=== PATIENT | female | born 1940 | race Caucasian/White ===

== ENCOUNTER 2019-10-20 10:14 | Outpatient (CLI) | payer MEDICARE, SELFPAY ==
[2019-10-20 10:25] LABS: Basophils Absolute Auto 0.04 K/mm3 (0.00-0.10); Basophils Percent Auto 0.9 % (0.0-1.0); Eosinophils Absolute Auto 0.14 K/mm3 (0.02-0.50); Eosinophils Percent Auto 3.1 % (1.0-6.0); Hematocrit 40.1 % (35.0-42.0); Hemoglobin 13.2 g/dL (11.7-13.8); Immature Granulocyte Absolute 0.01 K/mm3 (0.00-0.00); Immature Granulocyte Percent A 0.2 % (0.0-0.0); Lymphocytes Absolute Auto 1.26 K/mm3 (1.10-4.50); Mean Corpuscular HGB Conc 32.9 g/dL (32.0-36.0); Mean Corpuscular Hemoglobin 31.2 pg (27.0-31.0); Mean Corpuscular Volume 94.8 fL (78.0-102.0); Mean Platelet Volume 11.2 fl (9.2-11.8); Monocytes Absolute Auto 0.32 K/mm3 (0.10-0.90); Monocytes Percent Auto 7.1 % (2.0-11.0); Neutrophils Absolute Auto 2.7 K/mm3 (1.7-7.2); Neutrophils Percent Auto 60.7 % (50.0-70.0); Platelet Count Result 153 K/mm3 (150-420); Red Blood Count 4.23 M/mm3 (4.20-5.40); Red Cell Distribution Width 11.8 % (11.6-14.4); White Blood Count 4.5 K/mm3 (4.8-10.8)
[2019-10-20 10:31] LABS: Add Urine Microscopic? YES; Appearance Urine Clear (Clear); Bilirubin Urine Negative (Negative); Blood Urine Negative (Negative); Color Urine Yellow (Yellow); Glucose Urine UA Negative (Negative); Ketones Urine Negative (Negative); Leukocyte Esterase Ur Trace (Negative); Nitrate Urine Negative (Negative); Protein Urine Negative (Negative); Urobilinogen Urine 0.2 mg/dL (0.2-1.0)
[2019-10-20 10:51] LABS: RBC Urine 0-2 /hpf (0-2); Squamous Epithelial Cell Urine Rare /hpf (Few); WBC Urine 0-3 /hpf (0-3)
[2019-10-20 11:20] LABS: Bacteria Urine Trace /hpf
[2019-10-20 11:37] LABS: Alanine Aminotransferase 24 U/L (14-59); Alkaline Phosphatase 125 U/L (46-116); Aspartate Amino Transferase 21 U/L (15-37); Bilirubin,Total 0.5 mg/dL (0.00-1.00); Blood Urea Nitrogen 19 mg/dL (7-18); Calcium 9.6 mg/dL (8.5-10.1); Carbon Dioxide 31 mmol/L (21-32); Chloride 105 mmol/L (98-108); Cholesterol 148 mg/dL (0-200); Creatine Kinase 64 U/L (26-192); Estimated Glomerular Filt Rate 43; Free T3 2.97 pg/mL (2.18-3.98); Free T4 Free Thyroxine 0.96 ng/dL (0.76-1.46); Glucose 86 mg/dL (70-99); HDL Direct 59 mg/dL (40-60); LDL Cholesterol Calculated 62 mg/dL (<130); Osmolality Calculated 297 mOsm/kg (285-295); Sodium 143 mmol/L (136-145); Thyroid Stimulating Hormone 1.19 uIU/mL (0.36-3.74); Triglycerides 134 mg/dL (0-150)
[2019-10-20 11:42] LABS: CRP < 0.2 mg/dL (0.0-0.9)
[2019-10-20 12:24] LABS: Erythrocyte Sedimentation Rate 15 mm/hr (0-20)
[2019-10-22 18:50] LABS: Vitamin D 25 Hydroxy 37 ng/mL (30-100)
== END 2019-10-20 10:15 | disposition home or self-care (01) ==
PROVIDERS: PCP Internal Medicine; Visit Provider Internal Medicine
DX: M05.70 Rheumatoid arthritis with rheumatoid factor of unspecified site without organ or systems involvement (principal); N18.2 Chronic kidney disease, stage 2 (mild); E78.2 Mixed hyperlipidemia; I12.9 Hypertensive chronic kidney disease with stage 1 through stage 4 chronic kidney disease, or unspecified chronic kidney disease; R19.4 Change in bowel habit; M81.0 Age-related osteoporosis without current pathological fracture
CPT/HCPCS: 36415; 80053; 80061; 81001; 82306; 82550; 84439; 84443; 84481; 85025; 85652; 86140

== ENCOUNTER 2019-10-22 08:34 | Outpatient (CLI) | payer MEDICARE, SELFPAY ==
--- NOTE | ~2019-10-22 | CT_ITS ---
EXAMINATION: CT abdomen pelvis w con DATE: 10/22/2019 09:07 INDICATION: Diffuse abdominal cramping. Change in bowel habits for weeks. TECHNIQUE: Computed tomography (CT) of the abdomen and pelvis was performed with 100 cc Omnipaque 350 intravenous contrast. Automated exposure control and iterative reconstruction technique were employe d. Exam dose: 343.06 mGy-cm total exam DLP. COMPARISON: 02/27/2016 right upper quadrant abdominal ultrasound FINDINGS: There are focal areas of atelectasis, scarring and/or bronchiectasis at the lung bases. Status post sternotomy. Normal heart size. No pericardial or pleural effusion. There is an approximately 3 cm hypoenhancing right hepatic lesion; history of hepatic hemangioma of s laura size reportedly present on prior CT scan of August 2013. This also corresponds to a right hepatic echogenic focus noted on 02/27/2016 right upper quadrant abdominal ultrasound examination. Several up to 8 mm hypoenhancing lesions, likely hepatic cysts. The gallbladder is present and appears unremarkable. No bile duct or pancreatic duct dilatation. No p ancreatic mass lesion or calcification. Normal splenic size. Normal morphology of the adrenal glands. No renal mass lesion or urinary tract calculus or hydroureteronephrosis. There is mild diffuse thickening of the urinary bladder wall; recommend clinical correlation for cyst itis. Status post hysterectomy. Normal appendix. Diverticulosis of the colon; no CT evidence of diverticulitis. No bowel obstruction, bowel wall thick ening, pneumatosis or intraperitoneal free air. Abdominal aortic and iliac arterial calcification; no evidence of abdominal aortic aneurysm. No intra peritoneal or retroperitoneal or pelvic mass lesion or adenopathy or ascites. There is minimal free f luid in the dependent pelvis. Degenerative changes of the thoracic and lumbar spine. There is multilevel degenerative disc disease of the lumbar and lumbosacral area. There are degenerative changes of the apophyseal joints with asso ciated grade 1 anterolisthesis at L3-4 and L4-5. IMPRESSION: Bibasilar atelectasis, scarring and/or bronchiectasis 3 cm hepatic hemangioma, reportedly previously noted on August 2013 CT abdomen examination Several probable hepatic cysts measuring up to 8 mm Diverticulosis of the colon; no CT evidence of diverticulitis Reviewed, dictated and finalized at [facility]. Reviewed, dictated and finalized at location A. IMPRESSION: Bibasilar atelectasis, scarring and/or bronchiectasis 3 cm hepatic hemangioma, reportedly previously noted on August 2013 CT abdomen e xamination Several probable hepatic cysts measuring up to 8 mm Diverticulosis of the colon; no CT evidence of diverticulitis
== END 2019-10-22 08:35 | disposition home or self-care (01) ==
LOC: CHSIMG 08:37
PROVIDERS: PCP Internal Medicine; Visit Provider Internal Medicine
DX: R10.9 Unspecified abdominal pain (principal); R19.4 Change in bowel habit
CPT/HCPCS: 74177; Q9965

== ENCOUNTER 2019-11-27 15:45 | Outpatient (CLI) | payer MEDICARE, SELFPAY ==
[2019-11-27 16:24] LABS: Anion Gap 9.4 mmol/L (7-16); Blood Urea Nitrogen 20 mg/dL (7-18); Calcium 9.4 mg/dL (8.5-10.1); Carbon Dioxide 31 mmol/L (21-32); Chloride 103 mmol/L (98-108); Estimated Glomerular Filt Rate 41; Glucose 107 mg/dL (70-99); Osmolality Calculated 290 mOsm/kg (285-295); Potassium 4.4 mmol/L (3.5-5.1); Sodium 139 mmol/L (136-145)
== END 2019-11-27 15:46 | disposition home or self-care (01) ==
LOC: CHSLAB 15:47
PROVIDERS: PCP Internal Medicine; Visit Provider Internal Medicine
DX: R79.89 Other specified abnormal findings of blood chemistry (principal)
CPT/HCPCS: 36415; 80048

== ENCOUNTER 2020-02-22 12:42 | Outpatient (CLI) | payer MEDICARE, SELFPAY ==
[2020-02-22 13:12] LABS: Anion Gap 9 mmol/L (8-16); Blood Urea Nitrogen 20 mg/dL (7-18); Calcium 9.3 mg/dL (8.5-10.1); Carbon Dioxide 27 mmol/L (21-32); Chloride 105 mmol/L (98-108); Estimated Glomerular Filt Rate 41; Glucose 92 mg/dL (70-99); Osmolality Calculated 294 mOsm/kg (285-295); Potassium 4.4 mmol/L (3.5-5.1); Sodium 141 mmol/L (136-145)
== END 2020-02-22 12:43 | disposition home or self-care (01) ==
LOC: CHSLAB 12:43
PROVIDERS: PCP Internal Medicine; Visit Provider Internal Medicine
DX: R79.89 Other specified abnormal findings of blood chemistry (principal)
CPT/HCPCS: 36415; 80048

== ENCOUNTER 2020-04-22 09:46 | Outpatient (CLI) | payer MEDICARE, SELFPAY ==
[2020-04-22 10:02] LABS: Basophils Absolute Auto 0.04 K/mm3 (0.00-0.10); Basophils Percent Auto 0.9 % (0.0-1.0); Eosinophils Absolute Auto 0.27 K/mm3 (0.02-0.50); Eosinophils Percent Auto 5.9 % (1.0-6.0); Hematocrit 38.1 % (35.0-42.0); Hemoglobin 12.4 g/dL (11.7-13.8); Immature Granulocyte Absolute 0.02 K/mm3 (0.00-0.00); Immature Granulocyte Percent A 0.4 % (0.0-0.0); Lymphocytes Absolute Auto 1.07 K/mm3 (1.10-4.50); Lymphocytes Percent Auto 23.3 % (18.0-42.0); Mean Corpuscular HGB Conc 32.5 g/dL (32.0-36.0); Mean Corpuscular Hemoglobin 30.6 pg (27.0-31.0); Mean Corpuscular Volume 94.1 fL (78.0-102.0); Monocytes Absolute Auto 0.38 K/mm3 (0.10-0.90); Monocytes Percent Auto 8.3 % (2.0-11.0); Neutrophils Absolute Auto 2.8 K/mm3 (1.7-7.2); Neutrophils Percent Auto 61.2 % (50.0-70.0); Platelet Count Result 157 K/mm3 (150-420); Red Blood Count 4.05 M/mm3 (4.20-5.40); Red Cell Distribution Width 11.9 % (11.6-14.4); White Blood Count 4.6 K/mm3 (4.8-10.8)
[2020-04-22 10:15] LABS: Add Urine Microscopic? YES; Appearance Urine Clear (Clear); Bilirubin Urine Negative (Negative); Blood Urine Negative (Negative); Color Urine Yellow (Yellow); Glucose Urine UA Negative (Negative); Ketones Urine Negative (Negative); Leukocyte Esterase Ur 1+ LEU/UL (Negative); Nitrate Urine Negative (Negative); Protein Urine Negative (Negative); Urobilinogen Urine 0.2 mg/dL (0.2-1.0); pH Urine 7.5 (5.0-8.0)
[2020-04-22 10:18] LABS: Bacteria Urine Trace /hpf; RBC Urine None seen /hpf (0-2); Squamous Epithelial Cell Urine Few /hpf (Few)
[2020-04-22 11:13] LABS: Alanine Aminotransferase 22 U/L (14-59); Albumin Level 3.9 g/dL (3.4-5.0); Alkaline Phosphatase 121 U/L (46-116); Anion Gap 8 mmol/L (8-16); Aspartate Amino Transferase 22 U/L (15-37); Bilirubin,Total 0.4 mg/dL (0.00-1.00); Blood Urea Nitrogen 20 mg/dL (7-18); Calcium 9.2 mg/dL (8.5-10.1); Carbon Dioxide 29 mmol/L (21-32); Chloride 106 mmol/L (98-108); Cholesterol 140 mg/dL (0-200); Creatine Kinase 56 U/L (26-192); Estimated Glomerular Filt Rate 45; Glucose 83 mg/dL (70-99); HDL Direct 59 mg/dL (40-60); LDL Cholesterol Calculated 62 mg/dL (<130); Osmolality Calculated 297 mOsm/kg (285-295); Sodium 143 mmol/L (136-145); Total Protein 6.8 g/dL (6.4-8.2); Triglycerides 97 mg/dL (0-150)
[2020-04-22 11:17] LABS: RFT Charge Test YES; Rheumatoid Factor Screen Positive (Negative)
[2020-04-26 21:17] LABS: Anti Cyclic Citrullinated Pept >250 Units (<20)
[2020-04-27 12:24] LABS: Vitamin D 25 Hydroxy 37 ng/mL (30-100)
== END 2020-04-22 09:47 | disposition home or self-care (01) ==
LOC: CHSLAB 09:48
PROVIDERS: PCP Internal Medicine; Visit Provider Internal Medicine
DX: E78.5 Hyperlipidemia, unspecified (principal); I10 Essential (primary) hypertension; M81.0 Age-related osteoporosis without current pathological fracture; R31.9 Hematuria, unspecified; M05.70 Rheumatoid arthritis with rheumatoid factor of unspecified site without organ or systems involvement
CPT/HCPCS: 36415; 80053; 80061; 81001; 82306; 82550; 85025; 86200; 86430; 86431; 87086; 87088

== ENCOUNTER 2020-10-18 09:20 | Outpatient (CLI) | payer MEDICARE, SELFPAY ==
[2020-10-18 09:31] LABS: Basophils Absolute Auto 0.03 K/mm3 (0.00-0.10); Basophils Percent Auto 0.7 % (0.0-1.0); Eosinophils Absolute Auto 0.13 K/mm3 (0.02-0.50); Eosinophils Percent Auto 3.1 % (1.0-6.0); Hematocrit 37.7 % (35.0-42.0); Hemoglobin 12.4 g/dL (11.7-13.8); Immature Granulocyte Absolute 0.01 K/mm3 (0.00-0.00); Immature Granulocyte Percent A 0.2 % (0.0-0.0); Lymphocytes Absolute Auto 0.81 K/mm3 (1.10-4.50); Lymphocytes Percent Auto 19.2 % (18.0-42.0); Mean Corpuscular HGB Conc 32.9 g/dL (32.0-36.0); Mean Corpuscular Hemoglobin 30.9 pg (27.0-31.0); Mean Platelet Volume 10.8 fl (9.2-11.8); Monocytes Absolute Auto 0.39 K/mm3 (0.10-0.90); Monocytes Percent Auto 9.2 % (2.0-11.0); Neutrophils Absolute Auto 2.9 K/mm3 (1.7-7.2); Neutrophils Percent Auto 67.6 % (50.0-70.0); Platelet Count Result 162 K/mm3 (150-420); Red Blood Count 4.01 M/mm3 (4.20-5.40); Red Cell Distribution Width 12.1 % (11.6-14.4); White Blood Count 4.2 K/mm3 (4.8-10.8)
[2020-10-18 09:32] LABS: Add Urine Microscopic? YES; Appearance Urine Clear (Clear); Bilirubin Urine Negative (Negative); Blood Urine Negative (Negative); Color Urine Yellow (Yellow); Glucose Urine UA Negative (Negative); Ketones Urine Negative (Negative); Leukocyte Esterase Ur Trace (Negative); Nitrate Urine Negative (Negative); Protein Urine Negative (Negative); Specific Grav Ur 1.015 (1.010-1.020); Urobilinogen Urine 0.2 mg/dL (0.2-1.0)
[2020-10-18 09:39] LABS: Bacteria Urine Trace /hpf; RBC Urine None seen /hpf (0-2); Squamous Epithelial Cell Urine Few /hpf (Few); WBC Urine 0-3 /hpf (0-3)
[2020-10-18 10:03] LABS: Alanine Aminotransferase 18 U/L (14-59); Albumin Level 3.8 g/dL (3.4-5.0); Alkaline Phosphatase 68 U/L (46-116); Anion Gap 6 mmol/L (8-16); Aspartate Amino Transferase 16 U/L (15-37); Bilirubin,Total 0.6 mg/dL (0.00-1.00); Blood Urea Nitrogen 22 mg/dL (7-18); CRP < 0.5 mg/dL (0.0-0.9); Calcium 9.1 mg/dL (8.5-10.1); Carbon Dioxide 31 mmol/L (21-32); Chloride 103 mmol/L (98-108); Cholesterol 145 mg/dL (0-200); Creatine Kinase 52 U/L (26-192); Estimated Glomerular Filt Rate 46; Glucose 92 mg/dL (70-99); HDL Direct 56 mg/dL (40-60); LDL Cholesterol Calculated 69 mg/dL (<130); Osmolality Calculated 293 mOsm/kg (285-295); Potassium 4.7 mmol/L (3.5-5.1); Sodium 140 mmol/L (136-145); Total Protein 6.8 g/dL (6.4-8.2); Triglycerides 98 mg/dL (0-150)
[2020-10-18 10:16] LABS: RFT Charge Test YES; Rheumatoid Factor Screen Positive (Negative)
[2020-10-18 10:36] LABS: Erythrocyte Sedimentation Rate 22 mm/hr (0-20)
[2020-10-20 21:01] LABS: Vitamin D 25 Hydroxy 46 ng/mL (30-100)
[2020-10-28 08:40] LABS: Cyclic Citrullinated Peptide >250
== END 2020-10-18 09:21 | disposition home or self-care (01) ==
LOC: CHSLAB 09:22
PROVIDERS: PCP Internal Medicine; Visit Provider Internal Medicine
DX: E78.2 Mixed hyperlipidemia (principal); M81.0 Age-related osteoporosis without current pathological fracture; I12.9 Hypertensive chronic kidney disease with stage 1 through stage 4 chronic kidney disease, or unspecified chronic kidney disease; N18.2 Chronic kidney disease, stage 2 (mild); M05.70 Rheumatoid arthritis with rheumatoid factor of unspecified site without organ or systems involvement
CPT/HCPCS: 36415; 80053; 80061; 81001; 82306; 82550; 85025; 85652; 86140; 86430; 86431

== ENCOUNTER 2020-11-03 12:39 | Outpatient (CLI) | payer MEDICARE, SELFPAY ==
--- NOTE | ~2020-11-03 | MM_ITS ---
EXAMINATION: MM screening mg BI w marley HISTORY: Screening TECHNIQUE: Craniocaudal and mediolateral oblique 3-D tomosynthesis images were obtained and synthetic 2-D images were generated. CAD analysis was submitted and interpreted. COMPARISON: Comparison to multiple prior studies sequentially, with oldest reviewed study dated 08/14. BREAST PARENCHYMAL COMPOSITION: There are scattered areas of fibroglandular density. FINDINGS: There is no evidence of suspicious mass, calcification, or architectural distortion to sugg est malignancy in either breast. There has been no suspicious interval change. IMPRESSION: 1. No mammographic evidence of malignancy. 2. Recommend routine screening mammography in one year. BI-RADS Category 1: Negative Reviewed, dictated and finalized at location A.
--- NOTE | ~2020-11-03 | US_ITS ---
EXAMINATION: US carotid duplex BI EXAM DATE: 11/03/2020 15:19 INDICATION: Carotid stenosis. TECHNIQUE: Grayscale, color and pulsed Doppler images of the cervical carotid arteries were obtained . The degree of vessel stenosis is placed in one of the following categories: normal, <50% stenosis, 50-69% stenosis, >=70% stenosis but less than near-occlusion, near-occlusion, or occlusion. Note that percent stenosis relative to normal distal artery lumen diameter is indirectly measured from velocit y measurements as described by Foster, et al. Radiology 2003; 229:340-346. Comparison is made to prior examination from 06/18/2019. FINDINGS: RIGHT SIDE: Right common carotid artery peak systolic velocity (PSV in cm/s): 82 Right bulb/internal carotid artery peak systolic velocity (PSV in cm/s): 67 Right internal carotid artery end diastolic velocity (EDV in cm/s): 22 Right ICA/CCA peak systolic ratio: 0.8 Right external carotid artery peak systolic velocity (PSV in cm/s): 66 Right vertebral artery antegrade flow: yes There is moderate carotid bulb plaque. Velocity and Doppler waveforms in the common and internal carotid arteries is normal. LEFT SIDE: Left common carotid artery peak systolic velocity (PSV in cm/s): 74 Left bulb/internal carotid artery peak systolic velocity (PSV in cm/s): 96 Left internal carotid artery end diastolic velocity (EDV in cm/s): 23 Left ICA/CCA peak systolic ratio: 1.3 Left external carotid artery peak systolic velocity (PSV in cm/s): 86 Left vertebral artery antegrade flow: yes There is mild carotid bulb plaque. Velocity and Doppler waveforms in the common and internal carotid arteries is normal. IMPRESSION: 1. Less than 50 percent stenosis in the right internal carotid artery. 2. Less than 50 percent stenosis in the left internal carotid artery. > Reviewed, dictated and finalized at location B.
--- NOTE | ~2020-11-03 | DEXA_ITS ---
Bone Density Report Name: Denice Singh Age: 80 Sex: Female Ethnicity: White Date of : 1940 Indication: postmenopausal; screening for osteoporosis; height loss; prior fracture; asthma or emphysema; hysterectomy; rheumatoid arthritis; Referring Provider: Low [place] Study: Bone densitometry was performed. Exam Date: November 03, 2020 Accession number: Bone Density: Region BMD T-score Z-score Classification AP Spine(L1, L2, L3) 0.857 -1.5 1.1 Osteopenia Femoral Neck (Left) 0.535 -2.8 -0.6 Osteoporosis Total Hip (Left) 0.652 -2.4 -0.4 Osteopenia Femoral Neck (Right) 0.574 -2.5 -0.2 Osteoporosis Total Hip (Right) 0.702 -2.0 0.0 Osteopenia Femoral Neck Mean 0.554 -2.7 -0.4 Osteoporosis Total Hip Mean 0.677 -2.2 -0.2 Osteopenia World Health Organization criteria for BMD impression classify patients as: Normal (T-score at or above -1.0), Osteopenia (T-score between -1.0 and -2.5), or Osteoporosis (T-score at or below -2.5). 10-year Fracture Risk: FRAX not reported because: Some T-score for Spine Total or Hip Total or Femoral Neck at or below -2.5 Clinical Information Provided by Patient: Has had a low trauma fracture Has rheumatoid arthritis Has used the following medications: Vitamin D Has the following medical conditions: Asthma or Emphysema, Hysterectomy Patient maximum height was 63 Does not regularly consume dairy products Onset of menses at age 12 Number of children 2 Impression: The patient has established osteoporosis, based on the Left Femoral Neck T-score and the existence of a prior fracture. The patient has risk factors, including: previous fracture. Discussion: HIGH RISK OF FRACTURE. BONE DENSITY IS UNDESIRABLY LOW AT ONE OR MORE SKELETAL SITES, CONSISTENT WITH POSTMENOPAUSAL OSTEOPOROSIS. This patient's lowest T-score, in a patient who has previously fractured, meets the World Health Organization's (WHO) criteria for severe osteoporosis. In untreated patients, the risk of osteoporotic fracture increases approximately two-fold for each 1.0 SD decrease in T-score. Low bone density is not the only risk factor for fracture; also consider factors such as patient's age, frailty or poor health, risk of falling, risk of injury, previous osteoporotic fracture, family history of osteoporosis, cigarette smoking, low body weight, etc. Not everyone with low bone mineral density has osteoporosis; osteomalacia and other metabolic bone disorders should also be considered. Patients who have osteoporosis should be evaluated for specific diseases and conditions (secondary causes) that may cause or contribute to bone loss. The [place] [employer]ocr[employer] (AACE) and National Osteoporosis Foundation (NOF) recommend pharmacologic intervention for all postmenopausal
== END 2020-11-03 12:40 | disposition home or self-care (01) ==
LOC: CHSIMG 12:44
PROVIDERS: PCP Internal Medicine; Visit Provider Internal Medicine
DX: I65.29 Occlusion and stenosis of unspecified carotid artery (principal); M81.0 Age-related osteoporosis without current pathological fracture; Z12.31 Encounter for screening mammogram for malignant neoplasm of breast
CPT/HCPCS: 77063; 77067; 77080; 93880

== ENCOUNTER 2021-09-26 14:28 | Outpatient (CLI) | payer MEDICARE, SELFPAY ==
--- NOTE | ~2021-09-26 | XR_ITS ---
EXAMINATION: XR chest 2V DATE: 09/26/2021 14:57 INDICATION: Shortness of breath TECHNIQUE: PA and lateral views of the chest are obtained. COMPARISON: 11/04/2018 FINDINGS: There are airspace opacities in the right lower lobe. There is no pleural effusion or pneum othorax. The heart size is normal. Median sternotomy wires and mediastinal surgical clips are seen, l ikely from prior coronary artery bypass grafting. There is moderate thoracic spondylosis. IMPRESSION: 1. Right lower lobe airspace opacities, consistent with pneumonia. Reviewed, dictated and finalized at location F.
--- NOTE | ~2021-09-26 | CT_ITS ---
EXAMINATION: CTA chest PE protocol DATE: 09/26/2021 16:05 INDICATION: Shortness of breath. Elevated d-dimer. TECHNIQUE: Computed tomography angiography (CTA) of the chest was performed with 100 mL Omnipaque-350 intravenous contrast timed to evaluate the pulmonary arteries. Coronal maximum intensity projection 3D-reconstructions were created by the technologist. Automated exposure control and iterative reconst ruction technique were employed. Exam dose: 200.24 mGy-cm total exam DLP. COMPARISON: September 26, 2021 PA and lateral chest 08/18/2013 CT chest FINDINGS: There is diagnostic contrast enhancement of the pulmonary arteries and no evidence of pulmo nary embolism. No thoracic aortic aneurysm or dissection is evident. Heart size is within normal range. No hilar or mediastinal mass lesion or lymphadenopathy. Mild hilar and mediastinal lymph node promine nce is likely reactive due to bilateral lower lobe pneumonia, right greater than left. There is patchy consolidation in the right lower lobe with air bronchograms. There is less severe pat sonya consolidation in the left lower lobe. Minimal focal infiltrate in the posterior segment of the left upper lobe. Minimal atelectasis at the base of the middle lobe and lingula. There is prominent fibrocalcific discoid and nodular scarring in the left apex. Normal morphology of the adrenal glands. Status post sternotomy an coronary artery bypass graft surgery.. Mild anterior wedge compression fracture deformity of T1, T2. Moderate compression fracture deformity at T5 IMPRESSION: Bilateral lower lobe consolidating pneumonia, right worse than left No evidence of pulmonary embolism Impression fracture deformities of the thoracic spine Reviewed, dictated and finalized at [facility]. Reviewed, dictated and finalized at location A. IMPRESSION: Bilateral lower lobe consolidating pneumonia, right worse than lef t No evidence of pulmonary embolism Impression fracture deformities of the thoracic spine
[2021-09-26 14:48] LABS: Basophils Absolute Auto 0.05 K/mm3 (0.00-0.10); Basophils Percent Auto 0.7 % (0.0-1.0); Eosinophils Absolute Auto 0.04 K/mm3 (0.02-0.50); Eosinophils Percent Auto 0.6 % (1.0-6.0); Hematocrit 36.6 % (35.0-42.0); Hemoglobin 11.9 g/dL (11.7-13.8); Immature Granulocyte Absolute 0.06 K/mm3 (0.00-0.00); Immature Granulocyte Percent A 0.9 % (0.0-0.0); Lymphocytes Absolute Auto 0.93 K/mm3 (1.10-4.50); Lymphocytes Percent Auto 13.5 % (18.0-42.0); Mean Corpuscular HGB Conc 32.5 g/dL (32.0-36.0); Mean Corpuscular Hemoglobin 30.8 pg (27.0-31.0); Mean Corpuscular Volume 94.8 fL (78.0-102.0); Mean Platelet Volume 10.2 fl (9.2-11.8); Monocytes Absolute Auto 0.58 K/mm3 (0.10-0.90); Monocytes Percent Auto 8.4 % (2.0-11.0); Neutrophils Absolute Auto 5.2 K/mm3 (1.7-7.2); Neutrophils Percent Auto 75.9 % (50.0-70.0); Platelet Count Result 182 K/mm3 (150-420); Red Blood Count 3.86 M/mm3 (4.20-5.40); Red Cell Distribution Width 12.4 % (11.6-14.4); White Blood Count 6.9 K/mm3 (4.8-10.8)
[2021-09-26 14:56] LABS: Add Urine Microscopic? NO; Appearance Urine Clear (Clear); Bilirubin Urine Negative (Negative); Blood Urine Negative (Negative); Color Urine Yellow (Yellow); Glucose Urine UA Negative (Negative); Ketones Urine Negative (Negative); Leukocyte Esterase Ur Negative LEU/UL (Negative); Nitrate Urine Negative (Negative); Protein Urine Negative (Negative); Specific Grav Ur >= 1.030 (1.010-1.020); Urobilinogen Urine 0.2 mg/dL (0.2-1.0); pH Urine 5.5 (5.0-8.0)
[2021-09-26 15:06] LABS: D Dimer 1.08 mg/L (0.19-0.50)
[2021-09-26 15:12] LABS: Alanine Aminotransferase 21 U/L (14-59); Alkaline Phosphatase 28 U/L (46-116); Anion Gap 5 mmol/L (8-16); Aspartate Amino Transferase 17 U/L (15-37); Bilirubin,Total 0.4 mg/dL (0.00-1.00); Blood Urea Nitrogen 25 mg/dL (7-18); Calcium 9.2 mg/dL (8.5-10.1); Carbon Dioxide 29 mmol/L (21-32); Chloride 103 mmol/L (98-108); Creatine Kinase 43 U/L (26-192); Estimated Glomerular Filt Rate 36; Glucose 100 mg/dL (70-99); Osmolality Calculated 288 mOsm/kg (285-295); Potassium 4.5 mmol/L (3.5-5.1); Sodium 137 mmol/L (136-145); Total Protein 6.6 g/dL (6.4-8.2); Troponin I 10.3 ng/L (0.00-60.4)
== END 2021-09-26 14:29 | disposition home or self-care (01) ==
PROVIDERS: PCP Internal Medicine; Visit Provider Nurse Practitioner Family
DX: R06.02 Shortness of breath (principal); R79.1 Abnormal coagulation profile; J44.9 Chronic obstructive pulmonary disease, unspecified
CPT/HCPCS: 36415; 71046; 71275; 80053; 81003; 82550; 82553; 84484; 85025; 85380; Q9967

== ENCOUNTER 2021-10-06 10:56 | Outpatient (CLI) | payer MEDICARE, SELFPAY ==
--- NOTE | ~2021-10-06 | XR_ITS ---
XR chest 2V DATE: 10/06/2021 11:24 INDICATION: Pneumonia for 1.5 weeks. COPD, asthma TECHNIQUE: 2 views COMPARISON: 09/26/2021 CTA chest PE protocol FINDINGS: Status post sternotomy and CABG. Normal heart size. There is aortic calcification and tortuosity. There is bilateral lower lung infiltrate and/or atelectasis, improved since 09/26/2021. No pleural effusion or pulmonary vascular congestion or pleural effusion. Diffuse osteopenia. IMPRESSION: Improvement of bilateral lower lung infiltrates and/or atelectasis in the lower lungs Reviewed, dictated and finalized at location A.
[2021-10-06 11:13] LABS: Hemoglobin 12.3 g/dL (11.7-13.8); Mean Corpuscular HGB Conc 32.4 g/dL (32.0-36.0); Mean Corpuscular Hemoglobin 31.1 pg (27.0-31.0); Mean Platelet Volume 9.3 fl (9.2-11.8); Platelet Count Result 268 K/mm3 (150-420); Red Blood Count 3.96 M/mm3 (4.20-5.40); Red Cell Distribution Width 13.1 % (11.6-14.4); White Blood Count 12.3 K/mm3 (4.8-10.8)
[2021-10-06 11:26] LABS: Anion Gap 6 mmol/L (8-16); Blood Urea Nitrogen 25 mg/dL (7-18); Calcium 9.2 mg/dL (8.5-10.1); Carbon Dioxide 28 mmol/L (21-32); Chloride 103 mmol/L (98-108); Estimated Glomerular Filt Rate 40; Glucose 79 mg/dL (70-99); Osmolality Calculated 287 mOsm/kg (285-295); Potassium 4.3 mmol/L (3.5-5.1); Sodium 137 mmol/L (136-145)
[2021-10-06 11:56] LABS: Band Neutrophils Percent 0 % (0-6); Lymphocytes Absolute Manual 0.98 K/mm3 (1.1-4.5); Lymphocytes Percent Manual 8 % (18-44); Monocytes Absolute Manual 0.61 K/mm3 (0.1-0.90); Monocytes Percent Manual 5 % (3-9); Neutrophils Percent Manual 87 % (46-73); Platelet Estimate Adequate (Adequate); Total Cells Counted 100
== END 2021-10-06 10:57 | disposition home or self-care (01) ==
LOC: CHSLAB 11:00
PROVIDERS: PCP Internal Medicine; Visit Provider Internal Medicine
DX: J18.9 Pneumonia, unspecified organism (principal); E86.0 Dehydration
CPT/HCPCS: 36415; 71046; 80048; 85025

== ENCOUNTER 2021-10-20 09:58 | Inpatient (IN) | payer MEDICARE, SELFPAY ==
[2021-10-20] VITALS (11 sets, daily range): BP systolic 113–147; BP diastolic 49–70; PULSE 63–97; RESP 18–22; TEMP 35.8–37; O2SAT 91–97; BMI 25.0
--- NOTE | ~2021-10-20 | XR_ITS ---
XR chest 2V 10/20/2021 10:38 Indication: Dyspnea and shortness of breath Procedure: 2 view chest Comparison: Comparison to multiple prior studies sequentially, with oldest reviewed study dated 09/29. Findings: Patchy bilateral airspace disease most confluent in the right midlung. Status post median s ternotomy for CABG. Heart size normal. No significant effusion. There is a coronary artery stent. No pneumothorax. Impression: 1: Patchy bilateral airspace disease, compatible with pneumonia. Reviewed, dictated and finalized at location B. Impression: 1: Patchy bilateral airspace disease, compatible with pneumonia.
--- NOTE | 2021-10-20 10:08 | ED.SOB ---
HPI - SOB/Dyspnea General Chief Complaint: Shortness of Breath/Dyspnea Stated Complaint: SENT FOR DR KRAMER SOB Time Seen by Provider: 10/20/21 10:08 Source: patient Mode of arrival: ambulatory Limitations: no limitations History of Present Illness HPI Narrative: patient states she had pneumonia about 6 weeks ago. She was treated with antibiotics and steroids. She had increased her breathing treatments to 4 times a day while she was ill. She then had symptoms of sinusitis and has been started on amoxicillin 5 days ago. She still complained to her doctor that she is getting short of breath just walking across the room. She does have a history of COPD. She spoke with her doctor this morning who sent her here for further evaluation and possible admission to the hospital. She was tested for COVID with rapid antigen x2 were negative. She says that she has an elevated temperature to 99.8 yesterday morning and last evening. She denies any significant cough up other than that associated with her COPD. She complains of generalized weakness and chills. MD elicited complaint: shortness of breath Pertinent past history: COPD and pneumonia Onset (ago): week(s) (6) Context: recent illness Timing: intermittent and progressively worsening Severity: moderate Known history of: COPD Related Data Home Medications Medication Instructions Recorded Confirmed albuterol sulfate [ProAir HFA] 2 puff INHALATION QID PRN 10/20/21 10/20/21 alendronate 70 mg PO WEEKLY 10/20/21 10/20/21 alprazolam [Xanax] 0.25 mg PO TID PRN 10/20/21 10/20/21 amlodipine 2.5 mg PO DAILY 10/20/21 10/20/21 amoxicillin-pot clavulanate 1 tablet PO BID 10/20/21 10/20/21 aspirin 81 mg PO DAILY 10/20/21 10/20/21 budesonide 0.5 mg INHALATION DAILY 10/20/21 10/20/21 citalopram 20 mg PO DAILY 10/20/21 10/20/21 cyclobenzaprine 5 mg PO TID PRN 10/20/21 10/20/21 fluticasone propionate 2 spray INTRANASAL DAILY 10/20/21 10/20/21 folic acid 1 mg PO DAILY 10/20/21 10/20/21 hydroxychloroquine 200 mg PO DAILY 10/20/21 10/20/21 ipratropium-albuterol 3 ml INHALATION QID PRN 10/20/21 10/20/21 lovastatin 40 mg PO DAILY 10/20/21 10/20/21 magnesium oxide [MagOx] 400 mg PO DAILY 10/20/21 10/20/21 metoprolol succinate 25 mg PO DAILY 10/20/21 10/20/21 ticagrelor [Brilinta] 90 mg PO Q12H 10/20/21 10/20/21 Allergies Allergy/AdvReac Type Severity Reaction Status Date / Time No Known Allergies Allergy Verified 10/20/21 10:17 Review of Systems Review of Systems: All systems reviewed & are unremarkable except as noted in HPI and below Constitutional: Constitutional: Reports chills and Reports weakness Cardiovascular: Cardiovascular: Denies chest pain Respiratory: Respiratory: Reports as per HPI and Denies cough Gastrointestinal: Gastrointestinal: Denies diarrhea, Denies nausea and Denies vomiting PMFSH Past Medical History Medical History (Updated 10/20/21 @ 12:47 by Harvey Pillai MD) Chronic kidney disease, stage 2 (mild) COPD (chronic obstructive pulmonary disease) Coronary artery disease Hyperlipidemia Hypertension Pulmonary fibrosis Rheumatoid arthritis Surgical History Surgical History (Updated 10/20/21 @ 10:56 by Harvey Pillai MD) History of coronary artery stent placement Social History Social History (Updated 10/20/21 @ 10:57 by Harvey Pillai MD) Smoking packs per day: 2 Smoking cigarettes per day: 40.0 Years smoked: 15 Smoking pack-years: 30.00 Smoking status: Former smoker Tobacco type: cigarettes Second hand tobacco smoke exposure: Yes Alcohol intake: former Substance use: never Spiritual care concerns: No Exam Const: General: healthy appearing, no acute distress and alert Nutritional Appearance: well nourished Orientation/consciousness: patient oriented x3 HENMT: Head: normal to inspection Ears: external ears normal Eyes: Conjunctivae: conjunctivae normal Pupils: Equal, round and reactive pupils present EOM: EOMs intact giovanny
[2021-10-20 10:49] LABS: Basophils Absolute Auto 0.03 K/mm3 (0.00-0.10); Basophils Percent Auto 0.4 % (0.0-1.0); Eosinophils Absolute Auto 0.33 K/mm3 (0.02-0.50); Eosinophils Percent Auto 4.5 % (1.0-6.0); Hematocrit 32.7 % (35.0-42.0); Hemoglobin 10.7 g/dL (11.7-13.8); Immature Granulocyte Absolute 0.04 K/mm3 (0.00-0.00); Immature Granulocyte Percent A 0.5 % (0.0-0.0); Lymphocytes Absolute Auto 0.53 K/mm3 (1.10-4.50); Lymphocytes Percent Auto 7.3 % (18.0-42.0); Mean Corpuscular HGB Conc 32.7 g/dL (32.0-36.0); Mean Corpuscular Hemoglobin 30.4 pg (27.0-31.0); Mean Corpuscular Volume 92.9 fL (78.0-102.0); Mean Platelet Volume 9.5 fl (9.2-11.8); Monocytes Percent Auto 8.2 % (2.0-11.0); Neutrophils Absolute Auto 5.8 K/mm3 (1.7-7.2); Neutrophils Percent Auto 79.1 % (50.0-70.0); Platelet Count Result 183 K/mm3 (150-420); Red Blood Count 3.52 M/mm3 (4.20-5.40); Red Cell Distribution Width 12.5 % (11.6-14.4); White Blood Count 7.3 K/mm3 (4.8-10.8)
[2021-10-20 11:14] LABS: Influenza A QL RT-PCR Negative (Negative); Influenza B QL RT-PCR Negative (Negative); SARS-CoV-2 RNA PCR Negative (Negative)
[2021-10-20] MEDS: IPRATROPIUM 0.5 MG/ALBUTEROL SULFATE 2.5 MG AMPUL.NEB 3 ML INHALATION ×2 (11:27→18:17)
[2021-10-20 11:51] LABS: Lactic Acid Reflex 0.7 mmol/L (0.7-2.0)
[2021-10-20 11:54] LABS: Alanine Aminotransferase 17 U/L (6-35); Albumin Level 3.3 g/dL (3.5-5.1); Alkaline Phosphatase 36 U/L (38-126); Anion Gap 3 mmol/L (8-16); Aspartate Amino Transferase 25 U/L (14-36); Bilirubin,Total 0.6 mg/dL (0.2-1.3); Blood Urea Nitrogen 19 mg/dL (7-17); Calcium 9.3 mg/dL (8.4-10.2); Carbon Dioxide 26 mmol/L (22-30); Chloride 104 mmol/L (98-107); Estimated CRCL calculation 30 ml/min; Estimated Glomerular Filt Rate 48; Glucose 94 mg/dL (65-110); Magnesium 2.2 mg/dL (1.6-2.3); Osmolality Calculated 278 mOsm/kg (285-295); Potassium 4.6 mmol/L (3.4-5.0); Sodium 133 mmol/L (137-145)
[2021-10-20 12:02] LABS: NT Pro B Type Natriuretic Pept 2610 pg/mL (5-100)
[2021-10-20] MEDS: FUROSEMIDE INJ 40 MG/4 ML VIAL IV PUSH (12:27)
--- NOTE | 2021-10-20 13:08 | ECG_ITS ---
Measurements Intervals [place] Rate: 73 P: -16 UT: 136 QRS: -31 QRSD: 110 T: 18 QT: 401 QTc: 443 Interpretive Statements SINUS RHYTHM LEFT AXIS DEVIATION LEFT VENTRICULAR HYPERTROPHY BORDERLINE T WAVE ABNORMALITY- INFERIOR LEADS BASELINE ARTIFACT- II, III, AVR, AVL, AVF, V1-V2 BORDERLINE ECG Electronically Signed On 10-20-2021 14:27:05 CDT by Jem Rodriguez D.O.
--- NOTE | 2021-10-20 13:10 | PC.NURSE ---
Patient admitted from ER to unit at 1310. Oriented to room and call light. Patient arrived in w/c and was able to transfer to bed with standby assist. Patient denies pain.
[2021-10-20] MEDS: methylPREDNISolone SOD SUCC 40 MG VIAL IV PUSH ×2 (14:28→20:37)
[2021-10-20] MEDS: DOXYCYCLINE IV 100 MG in DEXTROSE 5% 100 ML IVPB (15:23)
[2021-10-20] MEDS: ACETAMINOPHEN 325 MG TABLET 650 MG PO (16:05)
[2021-10-20] MEDS: ENOXAPARIN 30 MG/0.3 ML SYRINGE SUB-Q (16:36)
[2021-10-20] MEDS: FUROSEMIDE INJ 20 MG/2 ML VIAL IV PUSH (16:37)
[2021-10-21] VITALS (12 sets, daily range): BP systolic 122–136; BP diastolic 63–66; PULSE 56–90; RESP 16–18; TEMP 36.2–36.3; O2SAT 92–98
[2021-10-21] MEDS: IPRATROPIUM 0.5 MG/ALBUTEROL SULFATE 2.5 MG AMPUL.NEB 3 ML INHALATION ×4 (00:12→18:31)
[2021-10-21 05:31] LABS: Hematocrit 32.9 % (35.0-42.0); Hemoglobin 10.8 g/dL (11.7-13.8); Mean Corpuscular HGB Conc 32.8 g/dL (32.0-36.0); Mean Corpuscular Hemoglobin 30.1 pg (27.0-31.0); Mean Corpuscular Volume 91.6 fL (78.0-102.0); Mean Platelet Volume 10.2 fl (9.2-11.8); Platelet Count Result 230 K/mm3 (150-420); Red Blood Count 3.59 M/mm3 (4.20-5.40)
[2021-10-21 05:46] LABS: Alanine Aminotransferase 21 U/L (14-59); Albumin Level 2.7 g/dL (3.4-5.0); Alkaline Phosphatase 35 U/L (46-116); Anion Gap 9 mmol/L (8-16); Aspartate Amino Transferase 15 U/L (15-37); Bilirubin,Total 0.3 mg/dL (0.00-1.00); Blood Urea Nitrogen 29 mg/dL (7-18); Calcium 9.6 mg/dL (8.5-10.1); Carbon Dioxide 25 mmol/L (21-32); Chloride 101 mmol/L (98-108); Estimated CRCL calculation 23 ml/min; Estimated Glomerular Filt Rate 39; Glucose 170 mg/dL (70-99); Magnesium 2.3 mg/dL (1.8-2.4); Osmolality Calculated 289 mOsm/kg (285-295); Sodium 135 mmol/L (136-145); Total Protein 6.8 g/dL (6.4-8.2)
[2021-10-21] MEDS: ALENDRONATE SODIUM 70 MG TABLET PO (06:00)
[2021-10-21] MEDS: DEXTROSE 5% 100 ML (06:09)
[2021-10-21] MEDS: DOXYCYCLINE IV 100 MG in DEXTROSE 5% 100 ML IVPB ×2 (06:10→18:26)
[2021-10-21] MEDS: ACETAMINOPHEN 325 MG TABLET 650 MG PO (07:59)
[2021-10-21] MEDS: ALPRAZolam (*CRX) 0.25 MG TABLET PO (08:00)
[2021-10-21] MEDS: MAGNESIUM OXIDE 400 MG TABLET PO (09:11)
[2021-10-21] MEDS: methylPREDNISolone SOD SUCC 40 MG VIAL IV PUSH ×2 (09:11→20:47)
[2021-10-21] MEDS: LOVASTATIN 20 MG TABLET 40 MG PO (09:11)
[2021-10-21] MEDS: FUROSEMIDE INJ 20 MG/2 ML VIAL IV PUSH ×2 (09:11→18:26)
[2021-10-21] MEDS: METOPROLOL SUCCINATE EXT REL 25 MG TABCR PO (09:12)
[2021-10-21] MEDS: amLODIPine BESYLATE 2.5 MG TABLET PO (09:12)
[2021-10-21] MEDS: FOLIC ACID 1 MG TABLET PO (09:12)
[2021-10-21] MEDS: CITALOPRAM HYDROBROMIDE 20 MG TABLET PO (09:13)
[2021-10-21] MEDS: HYDROXYCHLOROQUINE SULFATE 200 MG TABLET PO (09:13)
[2021-10-21] MEDS: FLUTICASONE PROPIONATE 0.05% NA SPR 16 GM BTL (*BKC) 2 SPRAY NASAL (09:13)
--- NOTE | 2021-10-21 10:36 | PM.IMHP ---
H&P: HPI History of Present Illness Date/Time: 10/21/21 10:36 this is a 81-year-old female that presented to the emergency department after visiting her primary care physician with complaints of shortness of breath and dyspnea. Patient has a past medical history of chronic kidney disease, COPD, CAD, hyperlipidemia, hypertension, pulmonary fibrosis and rheumatoid arthritis. According to patient approximately 2 months ago she was treated for pneumonia. After her situation did not improve she visited her primary care physician's office and was diagnosed with sinusitis and was started on antibiotics. Patient condition did not improve she still experience shortness of breath with daily activities. She visited her doctor's office this morning to complain of shortness of breath and was sent to our emergency department. Vital signs 73, 18, 97% on room air, blood pressure 121/56, 96.5, 73, 18, 97% on room air, WBC 7.3, hemoglobin 10.7, hematocrit 32.7, platelets 183, sodium 133, potassium 4.6, BUN 19, creatinine 1.10, glucose 94, lactic acid 0.7, magnesium 2.2, liver function enzymes within normal limits, creatinine 19, BNP 2610, influenza COVID-negative, chest x-ray indicates pneumonia, EKG sinus rhythm heart rate of 73. Patient still complaining use to complain of shortness of breath with improvement. Patient will be admitted for COPD and treatment of pneumonia. The patient denies CP, palpitation, extremity numbness, lightheadedness, dizziness, constipation, diarrhea, chills, or fever. Chief Complaint: Shortness of breath Review of Systems Review of Systems: A 14 organ system Review of Systems was performed and pertinent positives included in the HPI, otherwise remaining ROS is negative. [facility] Past Medical History Medical History (Updated 10/21/21 @ 10:46 by SOLOMON Vasquez) Chronic kidney disease, stage 2 (mild) COPD (chronic obstructive pulmonary disease) Coronary artery disease Hyperlipidemia Hypertension Pulmonary fibrosis Rheumatoid arthritis Surgical History Surgical History (Updated 10/20/21 @ 10:56 by Harvey Pillai MD) History of coronary artery stent placement Social History Social History (Updated 10/20/21 @ 10:57 by Harvey Pillai MD) Smoking packs per day: 2 Smoking cigarettes per day: 40.0 Years smoked: 15 Smoking pack-years: 30.00 Smoking status: Former smoker Tobacco type: cigarettes Second hand tobacco smoke exposure: Yes Alcohol intake: former Substance use: never Spiritual care concerns: No Meds Home Medications and Allergies Home Medications Medication Instructions Recorded Confirmed Type albuterol sulfate [ProAir HFA] 2 puff INHALATION QID PRN 10/20/21 10/20/21 History alendronate 70 mg PO WEEKLY 10/20/21 10/20/21 History alprazolam [Xanax] 0.25 mg PO TID PRN 10/20/21 10/20/21 History amlodipine 2.5 mg PO DAILY 10/20/21 10/20/21 History amoxicillin-pot clavulanate 1 tablet PO BID 10/20/21 10/20/21 History aspirin 81 mg PO DAILY 10/20/21 10/20/21 History budesonide 0.5 mg INHALATION DAILY 10/20/21 10/20/21 History citalopram 20 mg PO DAILY 10/20/21 10/20/21 History cyclobenzaprine 5 mg PO TID PRN 10/20/21 10/20/21 History fluticasone propionate 2 spray INTRANASAL DAILY 10/20/21 10/20/21 History folic acid 1 mg PO DAILY 10/20/21 10/20/21 History hydroxychloroquine 200 mg PO DAILY 10/20/21 10/20/21 History ipratropium-albuterol 3 ml INHALATION QID PRN 10/20/21 10/20/21 History lovastatin 40 mg PO DAILY 10/20/21 10/20/21 History magnesium oxide [MagOx] 400 mg PO DAILY 10/20/21 10/20/21 History metoprolol succinate 25 mg PO DAILY 10/20/21 10/20/21 History ticagrelor [Brilinta] 90 mg PO Q12H 10/20/21 10/20/21 History Allergies Allergy/AdvReac Type Severity Reaction Status Date / Time No Known Allergies Allergy Verified 10/20/21 10:17 Vital Signs Vital Signs - 24 hr 10/20/21 11:31 10/20/21 11:40 10/20/21 11:47 Temperature Pulse Rate 63 74 66 Respiratory Ra
[2021-10-21] MEDS: ENOXAPARIN 30 MG/0.3 ML SYRINGE SUB-Q (18:26)
[2021-10-21] MEDS: BISACODYL 5 MG TABLET EC PO (20:53)
[2021-10-22] VITALS (7 sets, daily range): BP systolic 114–121; BP diastolic 48–66; PULSE 69–80; RESP 18; TEMP 35.6–36.7; O2SAT 90–99
[2021-10-22] MEDS: ALPRAZolam (*CRX) 0.25 MG TABLET PO (00:10)
[2021-10-22] MEDS: IPRATROPIUM 0.5 MG/ALBUTEROL SULFATE 2.5 MG AMPUL.NEB 3 ML INHALATION ×2 (00:25→06:15)
[2021-10-22 05:11] LABS: Hematocrit 32.8 % (35.0-42.0); Hemoglobin 10.6 g/dL (11.7-13.8); Mean Corpuscular HGB Conc 32.3 g/dL (32.0-36.0); Mean Corpuscular Hemoglobin 29.7 pg (27.0-31.0); Mean Corpuscular Volume 91.9 fL (78.0-102.0); Mean Platelet Volume 9.8 fl (9.2-11.8); Platelet Count Result 254 K/mm3 (150-420); Red Blood Count 3.57 M/mm3 (4.20-5.40); Red Cell Distribution Width 12.3 % (11.6-14.4); White Blood Count 11.5 K/mm3 (4.8-10.8)
[2021-10-22 05:25] LABS: Alanine Aminotransferase 40 U/L (14-59); Albumin Level 2.7 g/dL (3.4-5.0); Alkaline Phosphatase 43 U/L (46-116); Anion Gap 10 mmol/L (8-16); Aspartate Amino Transferase 34 U/L (15-37); Bilirubin,Total 0.2 mg/dL (0.00-1.00); Blood Urea Nitrogen 41 mg/dL (7-18); Carbon Dioxide 25 mmol/L (21-32); Chloride 102 mmol/L (98-108); Estimated CRCL calculation 19 ml/min; Estimated Glomerular Filt Rate 30; Glucose 180 mg/dL (70-99); Magnesium 2.2 mg/dL (1.8-2.4); Osmolality Calculated 299 mOsm/kg (285-295); Sodium 137 mmol/L (136-145); Total Protein 7.2 g/dL (6.4-8.2)
[2021-10-22] MEDS: DOXYCYCLINE IV 100 MG in DEXTROSE 5% 100 ML IVPB (05:36)
--- NOTE | 2021-10-22 08:45 | P.DS_ITS ---
DS: Admitting Diagnosis Discharge Date 10/22/2021 Admitting Diagnosis COPDexacerbation, pneumonia rule out congestive heart failure DS: Discharge Diagnosis Discharge Diagnosis (1) Acute exacerbation of chronic obstructive airways disease: Code(s): J44.1 - Chronic obstructive pulmonary disease with (acute) exacerbation Status: Acute Assessment and Plan: * Chest x-ray indicates bilateral airway disease * Will continue supplementary oxygen, duo nebulizer along with as needed albuterol, Solu-Medrol and antibiotics doxycycline and Rocephin day 3 * Patient will discharge home with doxycycline and cefdinir x7 days * Patient will also discharge home with Symbicort and continue to use her as needed albuterol with nebulizers as needed * Patient will discharge home with Medrol pack (2) Congestive heart failure: Qualifiers: Heart failure chronicity: acute Heart failure type: unspecified Qualified Code(s): I50.9 - Heart failure, unspecified Code(s): I50.9 - Heart failure, unspecified Status: Acute Assessment and Plan: * No history of congestive heart failure * [id number] * Will order outpatient echo with results going to her primary care physician * Will start patient on a low dose Lasix due to chronic renal failure and a repeat BMP with results going to her primary care physician * Primary care physician will receive results and follow-up * Chest x-ray did not indicate edema nor does patient have lower extremity edema * Echo ordered as outpatient, patient will continue Lasix with a repeat CMP in 3 days to check renal function. * Primary care physician will determine whether or not patient will continue use of Lasix for congestive heart failure (3) PNA (pneumonia): Code(s): J18.9 - Pneumonia, unspecified organism Status: Acute Assessment and Plan: * Patient with a history of pneumonia treated with antibiotics and steroids * Has not resolved started patient on Rocephin in doxycycline. * WBCs within normal limit * Patient previously on amoxicillin before admission * Did not collect a blood culture due to patient's previous to admission antibi otic use * Patient not requiring any oxygen * Continue supplementary oxygen if needed along with duo nebulizers, as needed albuterol, Solu-Medrol and antibiotics doxycycline and Rocephin day 2 * Patient will discharge home with doxycycline and cefdinir. * CRP elevated on admission (4) Rheumatoid arthritis: Code(s): M06.9 - Rheumatoid arthritis, unspecified Status: Acute Assessment and Plan: * Continue home medication (5) Pulmonary fibrosis: Code(s): J84.10 - Pulmonary fibrosis, unspecified Status: Acute (6) Hypertension: Code(s): I10 - Essential (primary) hypertension Status: Acute Assessment and Plan: * Stable * Continue home medication (7) Hyperlipidemia: Code(s): E78.5 - Hyperlipidemia, unspecified Status: Acute Assessment and Plan: * Continue statins (8) Coronary artery disease: Code(s): I25.10 - Atherosclerotic heart disease of [place] coronary artery without angina pectoris Status: Inactive Assessment and Plan: * Continue statins along with Brilinta and aspirin (9) COPD (chronic obstructive pulmonary disease): Code(s): J44.9 - Chronic obstructive pulmonary disease, unspecified Status: Inactive (10) MARILUZ (acute kidney injury): Code(s): N17.9 - Acute kidney failure, unspecified Status: Acute Assessment and Plan: * Acute on chronic * Bu
--- NOTE | 2021-10-22 08:45 | PM.DS ---
DS: Admitting Diagnosis Discharge Date 10/22/2021 Admitting Diagnosis COPDexacerbation, pneumonia rule out congestive heart failure DS: Discharge Diagnosis Discharge Diagnosis (1) Acute exacerbation of chronic obstructive airways disease: Code(s): J44.1 - Chronic obstructive pulmonary disease with (acute) exacerbation Status: Acute Assessment and Plan: Chest x-ray indicates bilateral airway disease Will continue supplementary oxygen, duo nebulizer along with as needed albuterol, Solu-Medrol and antibiotics doxycycline and Rocephin day 3 Patient will discharge home with doxycycline and cefdinir x7 days Patient will also discharge home with Symbicort and continue to use her as needed albuterol with nebulizers as needed Patient will discharge home with Medrol pack (2) Congestive heart failure: Qualifiers: Heart failure chronicity: acute Heart failure type: unspecified Qualified Code(s): I50.9 - Heart failure, unspecified Code(s): I50.9 - Heart failure, unspecified Status: Acute Assessment and Plan: No history of congestive heart failure [id number] Will order outpatient echo with results going to her primary care physician Will start patient on a low dose Lasix due to chronic renal failure and a repeat BMP with results going to her primary care physician Primary care physician will receive results and follow-up Chest x-ray did not indicate edema nor does patient have lower extremity edema Echo ordered as outpatient, patient will continue Lasix with a repeat CMP in 3 days to check renal function. Primary care physician will determine whether or not patient will continue use of Lasix for congestive heart failure (3) PNA (pneumonia): Code(s): J18.9 - Pneumonia, unspecified organism Status: Acute Assessment and Plan: Patient with a history of pneumonia treated with antibiotics and steroids Has not resolved started patient on Rocephin in doxycycline. WBCs within normal limit Patient previously on amoxicillin before admission Did not collect a blood culture due to patient's previous to admission antibiotic use Patient not requiring any oxygen Continue supplementary oxygen if needed along with duo nebulizers, as needed albuterol, Solu-Medrol and antibiotics doxycycline and Rocephin day 2 Patient will discharge home with doxycycline and cefdinir. CRP elevated on admission (4) Rheumatoid arthritis: Code(s): M06.9 - Rheumatoid arthritis, unspecified Status: Acute Assessment and Plan: Continue home medication (5) Pulmonary fibrosis: Code(s): J84.10 - Pulmonary fibrosis, unspecified Status: Acute (6) Hypertension: Code(s): I10 - Essential (primary) hypertension Status: Acute Assessment and Plan: Stable Continue home medication (7) Hyperlipidemia: Code(s): E78.5 - Hyperlipidemia, unspecified Status: Acute Assessment and Plan: Continue statins (8) Coronary artery disease: Code(s): I25.10 - Atherosclerotic heart disease of [place] coronary artery without angina pectoris Status: Inactive Assessment and Plan: Continue statins along with Brilinta and aspirin (9) COPD (chronic obstructive pulmonary disease): Code(s): J44.9 - Chronic obstructive pulmonary disease, unspecified Status: Inactive (10) MARILUZ (acute kidney injury): Code(s): N17.9 - Acute kidney failure, unspecified Status: Acute Assessment and Plan: Acute on chronic Bun/CR 19/1.10>29/1.31>41/1.63 baseline creatinine1.10-1.20 CMP in 3 days with results going to primary care physician Will give a low-dose of Lasix due to renal failure DS: Summary Hospital Course Reason for hospitalization: sob Hospital Course: this is a 81-year-old female that presented to the emergency department after visiting her primary care physician with complaints of shortness of breath and dyspnea.
[2021-10-22] MEDS: LOVASTATIN 20 MG TABLET 40 MG PO (09:20)
[2021-10-22] MEDS: methylPREDNISolone SOD SUCC 40 MG VIAL IV PUSH (09:23)
[2021-10-22] MEDS: HYDROXYCHLOROQUINE SULFATE 200 MG TABLET PO (09:23)
[2021-10-22] MEDS: amLODIPine BESYLATE 2.5 MG TABLET PO (09:23)
[2021-10-22] MEDS: FUROSEMIDE INJ 20 MG/2 ML VIAL IV PUSH (09:23)
[2021-10-22] MEDS: FOLIC ACID 1 MG TABLET PO (09:25)
[2021-10-22] MEDS: CITALOPRAM HYDROBROMIDE 20 MG TABLET PO (09:25)
[2021-10-22] MEDS: METOPROLOL SUCCINATE EXT REL 25 MG TABCR PO (09:50)
[2021-10-22] MEDS: FLUTICASONE PROPIONATE 0.05% NA SPR 16 GM BTL (*BKC) 2 SPRAY NASAL (09:50)
[2021-10-22] MEDS: MAGNESIUM OXIDE 400 MG TABLET PO (09:50)
--- NOTE | 2021-10-22 10:41 | PC.NURSE ---
Pt discharged to family care. Pt is A+O x 3. VSS. Discharge instructions given to pt. Medications reviewed with pt. Out pt orders for lab and ECHO reviewed with pt. Pt to make appointment with primary MD for this week and call her industrial ecology technician. Pt verbalized understanding of all discharge orders. RN transported pt to family car via and assisted her into the car.
--- NOTE | 2021-10-24 14:23 | PC.NURSE ---
Pt states she received and understood her discharge instructions. Pt also states I was very, very pleased with my care there.
== END 2021-10-22 10:25 | disposition home or self-care (01) | DRG 190 ==
LOC: CHSED 12:47 → CHS2ND 12:57
PROVIDERS: Nurse Practitioner; Admitting Provider Internal Medicine; Emergency Provider Emergency Medicine; PCP Internal Medicine; Visit Provider Internal Medicine
DX: J44.1 Chronic obstructive pulmonary disease with (acute) exacerbation (principal); N18.2 Chronic kidney disease, stage 2 (mild); J84.10 Pulmonary fibrosis, unspecified; I25.10 Atherosclerotic heart disease of native coronary artery without angina pectoris; E78.5 Hyperlipidemia, unspecified; M06.9 Rheumatoid arthritis, unspecified; Z95.5 Presence of coronary angioplasty implant and graft; Z87.891 Personal history of nicotine dependence; Z20.822 Contact with and (suspected) exposure to COVID-19; I13.0 Hypertensive heart and chronic kidney disease with heart failure and stage 1 through stage 4 chronic kidney disease, or unspecified chronic kidney disease; I50.9 Heart failure, unspecified; J18.9 Pneumonia, unspecified organism; N17.9 Acute kidney failure, unspecified; J44.0 Chronic obstructive pulmonary disease with (acute) lower respiratory infection
CPT/HCPCS: 36415; 71046; 80053; 83605; 83735; 83880; 84484; 85025; 85027; 86140; 87081; 87502; 93005; 94640; 96374; 97161; 99285; A9270; C9803; J0696; J1650; J1940; J2920; U0003; U0005

== ENCOUNTER 2021-10-25 13:44 | Outpatient (CLI) | payer MEDICARE, SELFPAY ==
[2021-10-25 13:57] LABS: Hematocrit 35.6 % (35.0-42.0); Hemoglobin 11.5 g/dL (11.7-13.8); Mean Corpuscular HGB Conc 32.3 g/dL (32.0-36.0); Mean Corpuscular Hemoglobin 30.3 pg (27.0-31.0); Mean Corpuscular Volume 93.9 fL (78.0-102.0); Mean Platelet Volume 9.2 fl (9.2-11.8); Platelet Count Result 367 K/mm3 (150-420); Red Blood Count 3.79 M/mm3 (4.20-5.40); Red Cell Distribution Width 12.5 % (11.6-14.4); White Blood Count 12.8 K/mm3 (4.8-10.8)
[2021-10-25 14:06] LABS: Band Neutrophils Percent 0 % (0-6); Lymphocytes Absolute Manual 0.76 K/mm3 (1.1-4.5); Lymphocytes Percent Manual 6 % (18-44); Metamyelocytes Percent 2 %; Monocytes Absolute Manual 1.53 K/mm3 (0.1-0.90); Monocytes Percent Manual 12 % (3-9); Myelocytes Percent 5 %; Neutrophils Percent Manual 75 % (46-73); Total Cells Counted 100
[2021-10-25 14:07] LABS: Platelet Estimate Adequate (Adequate)
[2021-10-25 14:51] LABS: Alanine Aminotransferase 40 U/L (14-59); Albumin Level 3.1 g/dL (3.4-5.0); Alkaline Phosphatase 41 U/L (46-116); Anion Gap 8 mmol/L (8-16); Aspartate Amino Transferase 20 U/L (15-37); Bilirubin,Total 0.2 mg/dL (0.00-1.00); Blood Urea Nitrogen 40 mg/dL (7-18); Calcium 9.7 mg/dL (8.5-10.1); Carbon Dioxide 28 mmol/L (21-32); Chloride 103 mmol/L (98-108); Estimated Glomerular Filt Rate 40; Glucose 130 mg/dL (70-99); NT Pro B Type Natriuretic Pept 1341 pg/mL (0-450); Osmolality Calculated 299 mOsm/kg (285-295); Potassium 4.2 mmol/L (3.5-5.1); Sodium 139 mmol/L (136-145); Total Protein 6.2 g/dL (6.4-8.2)
== END 2021-10-25 13:45 | disposition home or self-care (01) ==
LOC: CHSLAB 13:46
PROVIDERS: PCP Internal Medicine; Visit Provider Internal Medicine
DX: I50.9 Heart failure, unspecified (principal)
CPT/HCPCS: 36415; 80053; 83880; 85025

== ENCOUNTER 2021-11-13 13:23 | Outpatient (CLI) | payer MEDICARE, SELFPAY ==
--- NOTE | ~2021-11-13 | CT_ITS ---
EXAMINATION: CT diagnostic chest wo con DATE: 11/13/2021 13:45 INDICATION: Pulmonary fibrosis. No chest complaints reported today. TECHNIQUE: Computed tomography (CT) of the chest was performed without intravenous contrast. Automate d exposure control and iterative reconstruction technique were employed. Exam dose: 119.57 mGy-cm to carrie exam DLP. COMPARISON: 10/20/2021 PA and lateral chest 09/26/2021 CT pulmonary scan FINDINGS: Normal heart size. Status post sternotomy and coronary bypass graft surgery. No pericardial or pleura l effusion. There are patchy bilateral pulmonary infiltrates including minimally improved multinodular medial lef t apical infiltrate since 09/26/2021. There are multiple new patchy right upper lobe infiltrates. There is considerable improvement of patchy consolidating infiltrates in the lower lobes with residua l peripheral septal soft tissue thickening. There is old pulmonary granulomatous disease including some calcified right paratracheal and right hi lar nodes, right lower lobe calcified pulmonary granuloma. No hilar mass lesion or lymphadenopathy. Normal morphology of the adrenal glands. Mild cupping of the superior vertebral endplate of T2. Moderate compression fracture deformity at T5. These are stable since 09/26/2021 IMPRESSION: Near resolution of patchy consolidating infiltrates in both lower lobes, minimal improve ment of multinodular left upper lobe infiltrate, but new patchy right upper lobe and lesser lingular infiltrates since 09/26/2021 Reviewed, dictated and finalized at [facility]. Reviewed, dictated and finalized at [facility]. IMPRESSION: Near resolution of patchy consolidating infiltrates in both lower lobes, minimal improvement of multinodular left upper lobe infiltrate, but new patchy right upper lobe and lesser lingular infiltrates since 09/26/2021
== END 2021-11-13 13:24 | disposition home or self-care (01) ==
LOC: CHSIMG 13:25
PROVIDERS: PCP Internal Medicine; Visit Provider Internal Medicine
DX: J84.10 Pulmonary fibrosis, unspecified (principal)
CPT/HCPCS: 71250

== ENCOUNTER 2021-11-17 09:51 | Outpatient (CLI) | payer MEDICARE, SELFPAY ==
[2021-11-17 10:26] LABS: Basophils Absolute Auto 0.05 K/mm3 (0.00-0.10); Basophils Percent Auto 0.8 % (0.0-1.0); Eosinophils Absolute Auto 0.05 K/mm3 (0.02-0.50); Eosinophils Percent Auto 0.8 % (1.0-6.0); Hematocrit 32.7 % (35.0-42.0); Hemoglobin 10.8 g/dL (11.7-13.8); Immature Granulocyte Absolute 0.08 K/mm3 (0.00-0.00); Immature Granulocyte Percent A 1.3 % (0.0-0.0); Lymphocytes Absolute Auto 1.05 K/mm3 (1.10-4.50); Lymphocytes Percent Auto 17.5 % (18.0-42.0); Mean Corpuscular Hemoglobin 30.4 pg (27.0-31.0); Mean Corpuscular Volume 92.1 fL (78.0-102.0); Neutrophils Absolute Auto 4.2 K/mm3 (1.7-7.2); Neutrophils Percent Auto 69.6 % (50.0-70.0); Platelet Count Result 207 K/mm3 (150-420); Red Blood Count 3.55 M/mm3 (4.20-5.40); Red Cell Distribution Width 13.5 % (11.6-14.4)
[2021-11-17 10:44] LABS: Add Urine Microscopic? NO; Appearance Urine Clear (Clear); Bilirubin Urine Negative (Negative); Blood Urine Negative (Negative); Color Urine Light Yellow (Yellow); Glucose Urine UA Negative (Negative); Ketones Urine Negative (Negative); Leukocyte Esterase Ur Negative (Negative); Nitrate Urine Negative (Negative); Protein Urine Negative (Negative); Specific Grav Ur 1.025 (1.010-1.020); Urobilinogen Urine 0.2 mg/dL (0.2-1.0)
[2021-11-17 10:50] VITALS: PULSE 54; O2SAT 95
[2021-11-17 10:52] VITALS: PULSE 61; O2SAT 96
[2021-11-17 10:55] VITALS: PULSE 68; O2SAT 79
[2021-11-17 10:56] LABS: Rheumatoid Factor Screen Positive (Negative)
[2021-11-17 10:57] LABS: RFT Charge Test YES
[2021-11-17 10:59] LABS: Alanine Aminotransferase 23 U/L (14-59); Albumin Level 3.1 g/dL (3.4-5.0); Alkaline Phosphatase 37 U/L (46-116); Anion Gap 5 mmol/L (8-16); Aspartate Amino Transferase 14 U/L (15-37); Bilirubin,Total 0.5 mg/dL (0.00-1.00); Blood Urea Nitrogen 28 mg/dL (7-18); CRP 2.3 mg/dL (0.0-0.9); Calcium 9.3 mg/dL (8.5-10.1); Carbon Dioxide 28 mmol/L (21-32); Chloride 105 mmol/L (98-108); Cholesterol 142 mg/dL (0-200); Creatine Kinase 29 U/L (26-192); Estimated Glomerular Filt Rate 34; Free T3 2.21 pg/mL (2.18-3.98); Free T4 Free Thyroxine 0.93 ng/dL (0.76-1.46); Glucose 86 mg/dL (70-99); HDL Direct 51 mg/dL (40-60); LDL Cholesterol Calculated 60 mg/dL (<130); NT Pro B Type Natriuretic Pept 724 pg/mL (0-450); Osmolality Calculated 290 mOsm/kg (285-295); Potassium 4.2 mmol/L (3.5-5.1); Sodium 138 mmol/L (136-145); Thyroid Stimulating Hormone 0.79 uIU/mL (0.36-3.74); Total Protein 6.4 g/dL (6.4-8.2); Triglycerides 153 mg/dL (0-150)
[2021-11-17 11:00] VITALS: PULSE 79; O2SAT 93
--- NOTE | 2021-11-17 11:16 | HOMEO2EVAL ---
Evaluation was performed at [facility] [place] Home Oxygen Evaluation RC: Home Oxygen (O2) Evaluation Start: 11/17/21 11:02 Freq: Status: Active Protocol: RPE Activity Type Activity Date Activity User E-sign Co-sign Detail Recorded Client Recorded Date Recorded By Document 11/17/21 10:50 SJB [id number] 11/17/21 11:16 SJB Document 11/17/21 10:52 SJB [id number] 11/17/21 11:16 SJB Document 11/17/21 10:55 SJB [id number] 11/17/21 11:16 SJB Document 11/17/21 11:00 SJB [id number] 11/17/21 11:16 SJB 11/17/21 11/17/21 11/17/21 10:50 10:52 10:55 Home O2 Evaluation Test Phase Resting Exercise Exercise Oxygen Delivery Room Air Room Air Oxygen Flow Rate (L/min) 1 Pulse Oximetry (90-100 %) 95 96 79 L Pulse Rate (60-100 beats/min) 54 L 61 68 Activity Tolerance Good Good Rating of Perceived Dyspnea (PD) +1 Mild, +2 Mild, Some Noticeable to Difficulty, the Participant Noticeable to but Not to an the Observer Observer Rate of Perceived Exertion (PE) 12 Ambulation Distance (feet) 190 360 Ambulation Distance (meters) 57.90 109.72 Home Oxygen Evaluation Comments Will begin walk Pt walked Pt walked on room air. approx 190 ft approx 360 ft with Sp02 on 1 lpm, sp02 dropping to 86% dropped to 79%, , HR 68. PLB HR 68. Will encouraged. increase 02 to Will start pt 2 lpm. on 1 lpm oxygen . Treatment Charges O2 Evaluation - Outpatient 11/17/21 11:00 Home O2 Evaluation Test Phase Exercise Oxygen Delivery Oxygen Flow Rate (L/min) 2 Pulse Oximetry (90-100 %) 93 Pulse Rate (60-100 beats/min) 79 Activity Tolerance Good Rating of Perceived Dyspnea (PD) +2 Mild, Some Difficulty, Noticeable to the Observer Rate of Perceived Exertion (PE) 12 Ambulation Distance (feet) 475 Ambulation Distance (meters) 144.77 Home Oxygen Evaluation Comments Pt finished walk after another 475 ft on 2 lpm, tolerating well . Sp02 remained at 92% and above with HR 79. PLB encouraged. Treatment Charges
[2021-11-17 11:30] LABS: Erythrocyte Sedimentation Rate 44 mm/hr (0-20)
[2021-11-22 14:04] LABS: Vitamin D 25 Hydroxy 42 ng/mL (30-100)
[2021-11-22 15:52] LABS: Ferritin 336 ng/mL (8-252); Iron 58 ug/dL (50-170)
[2021-11-23 17:05] LABS: Cyclic Citrullinated Peptide <16
== END 2021-11-17 09:52 | disposition home or self-care (01) ==
LOC: CHSCARD 09:55
PROVIDERS: PCP Internal Medicine; Visit Provider Internal Medicine
DX: E78.2 Mixed hyperlipidemia (principal); I12.9 Hypertensive chronic kidney disease with stage 1 through stage 4 chronic kidney disease, or unspecified chronic kidney disease; I25.10 Atherosclerotic heart disease of native coronary artery without angina pectoris; M05.70 Rheumatoid arthritis with rheumatoid factor of unspecified site without organ or systems involvement; E03.4 Atrophy of thyroid (acquired); N18.2 Chronic kidney disease, stage 2 (mild); M81.0 Age-related osteoporosis without current pathological fracture; I51.9 Heart disease, unspecified; E86.0 Dehydration; I50.9 Heart failure, unspecified; D64.9 Anemia, unspecified
CPT/HCPCS: 36415; 80053; 80061; 81003; 82306; 82550; 82728; 83540; 83880; 84439; 84443; 84481; 85025; 85652; 86140; 86430; 86431; 94060; 94618; 94726; 94729

== ENCOUNTER 2022-02-09 10:03 | Outpatient (CLI) | payer MEDICARE, SELFPAY ==
--- NOTE | 2022-02-09 10:10 | PC.NURSE ---
Here for OP infusion
[2022-02-09] MEDS: ZOLEDRONIC ACID 5 MG/100 ML 100 ML 400 MG IVPB (10:21)
--- NOTE | 2022-02-09 10:45 | PC.NURSE ---
saline lock removed, tolerated well, ambulatory to car
== END 2022-02-09 10:04 | disposition home or self-care (01) ==
LOC: CHSTREATRM 10:06
PROVIDERS: PCP Internal Medicine; Visit Provider Internal Medicine
DX: M81.0 Age-related osteoporosis without current pathological fracture (principal)
CPT/HCPCS: 96374; J3489

== ENCOUNTER 2022-08-27 10:01 | Outpatient (CLI) | payer MEDICARE, SELFPAY ==
[2022-08-27 10:13] LABS: Basophils Absolute Auto 0.04 K/mm3 (0.00-0.10); Basophils Percent Auto 0.9 % (0.0-1.0); Eosinophils Absolute Auto 0.15 K/mm3 (0.02-0.50); Eosinophils Percent Auto 3.4 % (1.0-6.0); Hematocrit 35.6 % (35.0-42.0); Hemoglobin 12.1 g/dL (11.7-13.8); Immature Granulocyte Absolute 0.01 K/mm3 (0.00-0.00); Immature Granulocyte Percent A 0.2 % (0.0-0.0); Lymphocytes Absolute Auto 1.04 K/mm3 (1.10-4.50); Lymphocytes Percent Auto 23.5 % (18.0-42.0); Mean Corpuscular Hemoglobin 31.5 pg (27.0-31.0); Mean Corpuscular Volume 92.7 fL (78.0-102.0); Mean Platelet Volume 10.4 fl (9.2-11.8); Monocytes Absolute Auto 0.34 K/mm3 (0.10-0.90); Monocytes Percent Auto 7.7 % (2.0-11.0); Neutrophils Absolute Auto 2.8 K/mm3 (1.7-7.2); Neutrophils Percent Auto 64.3 % (50.0-70.0); Platelet Count Result 143 K/mm3 (150-420); Red Blood Count 3.84 M/mm3 (4.20-5.40); Red Cell Distribution Width 12.3 % (11.6-14.4); White Blood Count 4.4 K/mm3 (4.8-10.8)
[2022-08-27 10:14] LABS: Appearance Urine Clear (Clear); Bilirubin Urine Negative (Negative); Blood Urine Negative (Negative); Color Urine Light Yellow (Yellow); Glucose Urine UA Negative (Negative); Ketones Urine Negative (Negative); Leukocyte Esterase Ur 1+ (Negative); Nitrate Urine Negative (Negative); Protein Urine Negative (Negative); Specific Grav Ur 1.025 (1.010-1.020); Urobilinogen Urine 0.2 mg/dL (0.2-1.0); pH Urine 6.5 (5.0-8.0)
[2022-08-27 10:21] LABS: Add Urine Microscopic? YES; Bacteria Urine Rare /hpf; RBC Urine None seen /hpf (0-2); Squamous Epithelial Cell Urine Few /hpf (Few); WBC Urine 0-3 /hpf (0-3)
[2022-08-27 11:16] LABS: Erythrocyte Sedimentation Rate 20 mm/hr (0-20)
[2022-08-27 11:18] LABS: Rheumatoid Factor Screen Negative (Negative)
[2022-08-27 12:06] LABS: Alanine Aminotransferase 29 U/L (14-59); Albumin Level 3.8 g/dL (3.4-5.0); Alkaline Phosphatase 69 U/L (46-116); Anion Gap 7 mmol/L (8-16); Aspartate Amino Transferase 32 U/L (15-37); Bilirubin,Total 0.6 mg/dL (0.00-1.00); Blood Urea Nitrogen 31 mg/dL (7-18); Calcium 9.7 mg/dL (8.5-10.1); Carbon Dioxide 32 mmol/L (21-32); Chloride 105 mmol/L (98-108); Cholesterol 141 mg/dL (0-200); Creatine Kinase 74 U/L (26-192); Estimated Glomerular Filt Rate 34; Free T3 2.47 pg/mL (2.18-3.98); Free T4 Free Thyroxine 0.88 ng/dL (0.76-1.46); Glucose 91 mg/dL (70-99); HDL Direct 60 mg/dL (40-60); Iron 82 ug/dL (50-170); LDL Cholesterol Calculated 57 mg/dL (<130); NT Pro B Type Natriuretic Pept 501 pg/mL (0-450); Osmolality Calculated 304 mOsm/kg (285-295); Percent Iron Saturation 29 % (12-57); Potassium 4.9 mmol/L (3.5-5.1); Sodium 144 mmol/L (136-145); Thyroid Stimulating Hormone 0.99 uIU/mL (0.36-3.74); Total Protein 6.6 g/dL (6.4-8.2); Triglycerides 121 mg/dL (0-150); Vitamin B12 416 pg/mL (193-986)
[2022-08-27 12:08] LABS: CRP < 0.5 mg/dL (0.0-0.9)
[2022-08-27 16:45] LABS: Ferritin 161 ng/mL (8-252)
[2022-08-30 11:30] LABS: Cyclic Citrullinated Peptide >250 Units (<20)
[2022-08-30 20:05] LABS: Red Blood Cell Folate 732 ng/mL RBC (>280)
== END 2022-08-27 10:02 | disposition home or self-care (01) ==
LOC: CHSLAB 10:03
PROVIDERS: PCP Internal Medicine; Visit Provider Internal Medicine
DX: N18.2 Chronic kidney disease, stage 2 (mild) (principal); D64.9 Anemia, unspecified; M05.70 Rheumatoid arthritis with rheumatoid factor of unspecified site without organ or systems involvement; M81.0 Age-related osteoporosis without current pathological fracture; E78.2 Mixed hyperlipidemia; I50.9 Heart failure, unspecified; I25.10 Atherosclerotic heart disease of native coronary artery without angina pectoris
CPT/HCPCS: 36415; 80053; 80061; 81001; 82550; 82607; 82728; 82747; 83540; 83550; 83880; 84439; 84443; 84481; 85025; 85652; 86140; 86430

== ENCOUNTER 2023-02-27 10:40 | Outpatient (CLI) | payer MEDICARE, SELFPAY ==
[2023-02-27] MEDS: ZOLEDRONIC ACID 5 MG/100 ML 100 ML 400 MG IVPB (10:50)
[2023-02-27 10:58] VITALS: BMI 25.2
[2023-02-27 11:10] VITALS: BP 121/60; PULSE 68; RESP 14; TEMP 36.2; O2SAT 98
--- NOTE | 2023-02-27 11:15 | PC.NURSE ---
Patient here for yearly Reclast infusion. Education given. No concerns voiced. IV Reclast administered. SEE MAR. Tolerated well. Safe exit of hospital per ambulatory/staff.
== END 2023-02-27 10:41 | disposition home or self-care (01) ==
PROVIDERS: PCP Internal Medicine; Visit Provider Internal Medicine
DX: M81.0 Age-related osteoporosis without current pathological fracture (principal)
CPT/HCPCS: 96374; J3489

== ENCOUNTER 2023-05-08 13:14 | Outpatient (CLI) | payer MEDICARE, SELFPAY ==
--- NOTE | ~2023-05-08 | US_ITS ---
EXAMINATION: US carotid duplex BI DATE: 05/08/2023 14:04 INDICATION: Follow-up carotid stenosis TECHNIQUE: Grayscale, color Doppler, and pulsed Doppler images of the cervical carotid arteries were obtained. The degree of vessel stenosis is placed in one of the following categories: normal, <50%, 5 0-69%, >=70% but less than near-occlusion, near-occlusion, or total occlusion. Note that percent sten osis relative to normal distal artery lumen diameter is indirectly measured from velocity measurement s as described by Foster, et al. Radiology 2003; 229:340-346. Notes: Normal: Peak systolic velocity <125 centimeters/sec and no plaque <50%. Peak systolic velocity <125 ( EDV <40; ICA/CCA PSV ratio <2.0; used these factors only a tandem lesions or low cardiac output or co ntralateral disease) 50-69 %: PSV 125-230 (EDV 40-100; ratio 2-4) >= 70% but less than near occlusion: PSV greater than 230 (EDV > 100; ratio> 4.0) Near Occlusion: PSV that is variable; markedly narrowed lumen Occlusion: Absent flow on color/spectral Doppler and no lumen on doe scale. COMPARISON: Ultrasound dated 11/03/2020. FINDINGS: RIGHT: The right common carotid artery (CCA) peak systolic velocity (PSV) is 89 cm/s. The right internal car otid artery (ICA) PSV is 71 cm/s. The right ICA end-diastolic velocity (EDV) is 20 cm/s. The right IC A/CCA PSV ratio is 0.8. The external carotid artery (ECA) PSV is 76 cm/s. There is antegrade flow in the right vertebral artery. LEFT: The left CCA PSV is 100 cm/s. The left ICA PSV is 100 cm/s. The left ICA EDV is 25 cm/s. The left ICA /CCA PSV ratio is 1. The ECA PSV is 110 cm/s. There is antegrade flow in the left vertebral artery. IMPRESSION: 1. Less than 50% stenosis in the right internal carotid artery by sonographic criteria. 2. Less than 50% stenosis in the left internal carotid artery by sonographic criteria. Reviewed, dictated and finalized at location B. NSIGNMENT CLERK IMPRESSION: 1. Less than 50% stenosis in the right internal carotid artery by sonographic c riteria. 2. Less than 50% stenosis in the left internal carotid artery by sonographic cr jesusia.
--- NOTE | ~2023-05-08 | DEXA_ITS ---
Bone Density Report Name: YOSELYN WASHINGTON Age: 82 Sex: Female Ethnicity: White Date of : 1940 Indication: postmenopausal; screening for osteoporosis; height loss; asthma or emphysema; hysterectomy; rheumatoid arthritis; secondary osteoporosis; Referring Provider: VICENTE EVANS Study: Bone densitometry was performed. Exam Date: May 08, 2023 Accession number: [id number] Bone Density: Region BMD T-score Z-score Classification AP Spine(L1, L2, L3) 0.881 -1.2 1.4 Osteopenia Femoral Neck (Left) 0.514 -3.0 -0.6 Osteoporosis Total Hip (Left) 0.713 -1.9 0.3 Osteopenia Femoral Neck (Right) 0.524 -2.9 -0.6 Osteoporosis Total Hip (Right) 0.687 -2.1 0.1 Osteopenia Femoral Neck Mean 0.519 -3.0 -0.6 Osteoporosis Total Hip Mean 0.700 -2.0 0.2 Osteopenia World Health Organization criteria for BMD impression classify patients as: Normal (T-score at or above -1.0), Osteopenia (T-score between -1.0 and -2.5), or Osteoporosis (T-score at or below -2.5). 10-year Fracture Risk: FRAX not reported because: Some T-score for Spine Total or Hip Total or Femoral Neck at or below -2.5 Treated for osteoporosis Clinical Information Provided by Patient: Has rheumatoid arthritis Has secondary osteoporosis Is being treated for osteoporosis Has used the following medications: Vitamin D Has the following medical conditions: Asthma or Emphysema, Hysterectomy Patient maximum height was 63 Drinks caffeinated beverages Onset of menses at age 11 Number of children 2 Impression: The patient has osteoporosis, based on the Left Femoral Neck T-score. Discussion: It is important to ask patients whether they are taking their medications and to encourage continued and appropriate compliance with their osteoporosis therapies to reduce fracture risk. It is also important to review their risk factors and encourage appropriate calcium and vitamin D intakes, exercise, fall prevention and other lifestyle measures. Follow-Up: Consider a repeat BMD and Vertebral Fracture Assessment (VFA) exam in 2 years or sooner if medically necessary, to reassess this patient's status. Reported by: Dr. Gerber Hightower on 05/08/2023 1:52:00 PM. Reviewed, dictated and finalized at [facility] [place]
== END 2023-05-08 13:15 | disposition home or self-care (01) ==
LOC: CHSIMG 13:16
PROVIDERS: PCP Internal Medicine; Visit Provider Internal Medicine
DX: Z78.0 Asymptomatic menopausal state (principal); I65.23 Occlusion and stenosis of bilateral carotid arteries; M85.89 Other specified disorders of bone density and structure, multiple sites; M81.0 Age-related osteoporosis without current pathological fracture
CPT/HCPCS: 77080; 93880

== ENCOUNTER 2024-02-21 11:24 | Outpatient (CLI) | payer MEDICARE, SELFPAY ==
--- NOTE | ~2024-02-21 | XR_ITS ---
EXAMINATION: XR chest 2V DATE: 02/21/2024 11:46 INDICATION: Cough and wheezing TECHNIQUE: frontal and lateral views of the chest were obtained. COMPARISON: Chest radiograph dated 10/20/[address] dated 11/13/2021 FINDINGS: Mild streaky left basilar testes. Small calcified nodules in the right upper lung zone consistent wit h old granulomatous disease. No pulmonary edema, pleural effusion or pneumothorax. Size is normal. Me gunjan sternotomy wires, ostial markers and mediastinal surgical clips consistent with prior coronary a rtery bypass grafting. There is also coronary artery stenting. Chronic mild T5 compression fracture w ith moderate spondylosis in the thoracic spine. IMPRESSION: 1. Mild streaky left basilar opacities which could represent atelectasis, pneumonia or scarring relat ed to prior pneumonia. Reviewed, dictated and finalized at location [facility]. IMPRESSION: 1. Mild streaky left basilar opacities which could represent atelectasis, pneum onia or scarring related to prior pneumonia.
[2024-02-21 11:45] LABS: Basophils Absolute Auto 0.03 K/mm3 (0.00-0.10); Basophils Percent Auto 0.3 % (0.0-1.0); Eosinophils Absolute Auto 0.02 K/mm3 (0.02-0.50); Eosinophils Percent Auto 0.2 % (1.0-6.0); Hematocrit 35.7 % (35.0-42.0); Hemoglobin 12.1 g/dL (11.7-13.8); Immature Granulocyte Absolute 0.13 K/mm3 (0.00-0.00); Immature Granulocyte Percent A 1.4 % (0.0-0.0); Lymphocytes Absolute Auto 0.86 K/mm3 (1.10-4.50); Lymphocytes Percent Auto 9.5 % (18.0-42.0); Mean Corpuscular HGB Conc 33.9 g/dL (32-36); Mean Corpuscular Hemoglobin 31.5 pg (27.0-31.0); Mean Platelet Volume 10.2 fl (9.2-11.8); Monocytes Absolute Auto 0.48 K/mm3 (0.10-0.90); Monocytes Percent Auto 5.3 % (2.0-11.0); Neutrophils Absolute Auto 7.58 K/mm3 (1.70-7.20); Neutrophils Percent Auto 83.3 % (50.0-70.0); Platelet Count Result 199 K/mm3 (150-420); Red Blood Count 3.84 M/mm3 (4.20-5.40); Red Cell Distribution Width 12.3 % (11.6-14.4); White Blood Count 9.1 K/mm3 (4.8-10.8)
[2024-02-21 11:59] LABS: Alanine Aminotransferase 33 U/L (14-59); Albumin Level 3.8 g/dL (3.4-5.0); Alkaline Phosphatase 112 U/L (46-116); Anion Gap 10 mmol/L (4-12); Aspartate Amino Transferase 20 U/L (15-37); Bilirubin,Total 0.4 mg/dL (0.00-1.00); Blood Urea Nitrogen 37 mg/dL (7-18); Calcium 9.7 mg/dL (8.5-10.1); Carbon Dioxide 26 mmol/L (21-32); Chloride 100 mmol/L (98-108); Estimated Glomerular Filt Rate 35; Glucose 94 mg/dL (70-99); Osmolality Calculated 290 mOsm/kg (285-295); Potassium 4.1 mmol/L (3.5-5.1); Sodium 136 mmol/L (136-145); Total Protein 7.4 g/dL (6.4-8.2)
[2024-02-21 12:18] LABS: Influenza A QL RT-PCR Negative (Negative); Influenza B QL RT-PCR Negative (Negative); RSV RNA, RT-PCR Negative (Negative); SARS-CoV-2 RNA PCR Negative (Negative)
== END 2024-02-21 11:25 | disposition home or self-care (01) ==
LOC: CHSLAB 11:26
PROVIDERS: PCP Internal Medicine; Visit Provider Internal Medicine
DX: R05.9 Cough, unspecified (principal); J44.9 Chronic obstructive pulmonary disease, unspecified; R06.2 Wheezing; R91.8 Other nonspecific abnormal finding of lung field
CPT/HCPCS: 36415; 71046; 80053; 85025; 87637

== ENCOUNTER 2024-03-02 11:41 | Outpatient (CLI) | payer MEDICARE, SELFPAY ==
--- NOTE | ~2024-03-02 | CT_ITS ---
EXAMINATION: CT sinus wo con DATE: 03/02/2024 11:57 INDICATION: Chronic sinusitis, drainage, pain and pressure. TECHNIQUE: Computed tomography (CT) of the paranasal sinuses was performed without intravenous contra st. The dose-length product (DLP) was 274.44 mGy-cm. Iterative reconstruction was used. COMPARISON: None FINDINGS: There is normal development and pneumatization of the paranasal sinuses. Trace left mastoid fluid. Minimal inferior bilateral maxillary mucosal thickening. The frontal, sphenoid, and ethmoid s inuses are clear. The bilateral ostiomeatal complexes are patent. Visualized soft tissues are unremar kable. Cerumen in the left external auditory meatus. Mild rightward bowing of the anterior osseous na aarti septum with a small right-sided spur. IMPRESSION: Minimal bilateral maxillary inferior mucoperiosteal disease. Trace left mastoid effusion. Reviewed, dictated and finalized at location [facility].
== END 2024-03-02 11:42 | disposition home or self-care (01) ==
PROVIDERS: PCP Internal Medicine; Visit Provider Internal Medicine
DX: J32.0 Chronic maxillary sinusitis (principal); H74.8X2 Other specified disorders of left middle ear and mastoid
CPT/HCPCS: 70486

== ENCOUNTER 2024-03-12 09:48 | Outpatient (CLI) | payer MEDICARE, SELFPAY ==
[2024-03-12 10:05] VITALS: BP 128/60; PULSE 58; RESP 16; TEMP 36.6; O2SAT 98; BMI 25.4
[2024-03-12] MEDS: ZOLEDRONIC ACID 5 MG/100 ML 100 ML 400 MG IVPB (10:05)
--- NOTE | 2024-03-12 10:27 | PC.NURSE ---
Patient here for IV Reclast infusion. Education given. Patient reports this her 3rd year of getting this and has done well with it. Reclast administered see MAR/patient care notes. Tolerated well.
== END 2024-03-12 10:30 | disposition home or self-care (01) ==
PROVIDERS: PCP Internal Medicine; Visit Provider Internal Medicine
DX: M81.0 Age-related osteoporosis without current pathological fracture (principal)
CPT/HCPCS: 96374; J3489

== ENCOUNTER 2024-08-26 11:52 | Outpatient (CLI) | payer MEDICARE, SELFPAY ==
--- NOTE | ~2024-08-26 | MM_ITS ---
EXAMINATION: MM screening [facility] BI [facility] HISTORY: Screening TECHNIQUE: Craniocaudal and mediolateral oblique 3-D tomosynthesis images were obtained and synthetic 2-D images were generated. CAD analysis was submitted and interpreted. COMPARISON: 11/03/2020 and dating back to 08/06/2016 BREAST PARENCHYMAL COMPOSITION: There are scattered areas of fibroglandular density. FINDINGS: Punctate calcifications are detected bilaterally, primarily dermal in origin, stable and be nign in appearance. Stable parenchymal pattern without suspicious microcalcifications, architectural distortion, discrete masses or significant asymmetry. IMPRESSION: 1. No mammographic evidence of malignancy. 2. Recommend routine screening mammography in one year. BI-RADS Category 2: Benign finding(s). Reviewed, dictated and finalized at location A.
--- OUTSIDE RECORDS SUMMARY | 2024-08-26 13:17 | XMS_ITS | Data Portability ---
Author Organization [facility], [address] [place] [address] [place]rology ([place]) Address [address] [place] [id number] Care Team Providers Care Clinical Research Physician Name Role Phone VICENTE EVANS Primary Care Provider Assessment Encounter Date Assessment Date Assessment LastModified by Organization Details LastModified Time 10/10/2023 10/10/2023 IMPRESSION: 1. Elevated rheumatoid factor in the absence of active signs of rheumatoid arthritis today. I discussed with the patient today her current ongoing treatment. She would really like to try and come off of oral DMARD medications. 2. Osteoarthritis. 3. Fatigue. 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 5. Chronic constipation. 6. High risk medication use. nv PLAN: 1. Discontinue hydroxychloroquine for now. 2. May use acetaminophen up to 1 g p.o. t.i.d. p.r.n. for analgesic relief. 3. Labs today, including a TSH, free T4, random cortisol level, serum B12 and folate levels. 4. Followup visit in 4 months. Further recommendations to follow once the results of the above serologic workup are available. tylor Not available 10/12/2023 11:39:32 10/24/2023 10/24/2023 IMPRESSION: 1. CCP positive and rheumatoid factor positive polyarthralgias. Does raise the specter once again of seropositive RA. Would consider, perhaps, a stronger oral DMARD if the hydroxychloroquine was of no benefit. It sounds like her joint symptoms have actually worsened off the hydroxychloroquine. Please see plan below. 2. Components that do suggest an element of fibromyalgia syndrome. 3. Osteoarthritis. nv PLAN: 1. Prednisone 20 mg daily for 3 days, then taper every 3 days by 5 mg decrements until off. 2. May use acetaminophen up to 1 g p.o. t.i.d. p.r.n. for analgesic relief. 3. Phone followup in 1 week with an update. If it responds to the steroids as dramatically positive, would consider initiation of low to moderate dose methotrexate therapy versus leflunomide low dose therapy. 4. She will keep her currently scheduled February 2024 appointment for now. tylor Not available 10/26/2023 21:24:40 02/13/2024 02/13/2024 IMPRESSION 1. Polyarticular osteoarthritis. 2. Elevated rheumatoid factor and CCP antibody in the absence of signs or symptoms of RA. 3. Raynaud's phenomenon. PLAN 1. Prednisone 20 mg daily for three days, then taper every three days by 5 mg decrements until off. This prescription is to be used only for flares of her joint symptoms. 2. Discussed with the patient today other options provided she has frequent flares and requires the prednisone therapy. Would consider possibly treating rheumatoid arthritis with either leflunomide, sulfasalazine, or perhaps one of the biologics. She is not interested in starting any new medications at this point. 3. She is to call us if she flares. 4. Tylenol Arthritis one to two tablets orally twice a day as needed for pain relief. 5. One hour or more of weight bearing activity daily. 6. Follow-up visit in six months for a recheck. [email or web address] Not available 02/13/2024 19:29:03 Plan of Treatment Reminders Order Date Submit Date Provider Last Modified By Organization Details Last Modified Time Details Appointments Establish ed Patient 15.EST 2024 01:15P M Dr. Jaciel Borges Not available Not available Not available Lab cortisol, serum or plasma 2023 024 [id number] [employer] [facility], [facility] [place], [address], 10/24/2023 12:58:30 TSH, serum or plasma 2023 024 [id number] [employer] [facility], [facility] [place], [address], 10/21/2023 15:39:40 T4, free, serum 2023 024 [employer] [facility], [address] [place], [address], 10/21/2023 15:39:48 vitamin B12, serum 2023 024 [id number] [employer] [facility], [address] [place], [address], 10/24/2023 12:58:40 folate, serum 2023 024 [employer] [facility], [address] [facility] [place], [address], 10/24/2023 12:58:52 Referral None recorded. Procedures None recorded. Surgeries None recorded. Imaging None recorded. Medication Orders prednison e 5 mg tablet 2023 024 [facility] [address] [place], [address], 10/25/2023 16:48:21 Patient TargetsNo targets recorded. Patient InstructionsNo instructions recorded. Reason for Referral None Reported. Results Created Date Observation Date Name Description Value Unit Range Abnormal Flag Note LastModifiedBy Organization Detail LastModifiedTime Result Notes None recorded. Problems Name Problem SNOMED Code Status Onset Date Resolution Date Notes Provider Name and Address Organization Details Recorded Time Vitamin D deficiency 17669991 [facility]:05 Chronic kidney disease stage 3 209075114 Active 2023 [facility]:56:15 Osteoarthritis 299785300 Active 2023 [facility]:56:56 Rheumatoid arthritis 83959974 Active 2023 [facility] 13:57:11 Rheumatoid factor detected 625358416 Active 2023 Jaciel Borges MD [address] [place] [address], [phone], [facility] 4 17:33:55 Fatigue 27396378 Active [address] [facility] [place] [address], [phone], [facility] 4 17:34:08 Alopecia 16520682 Active [address] [facility] [place] [address], [phone], [facility] 4 17:34:15 Chronic constipation 277271006 Active 2023 Jaciel Borges MD [address] [place] [address], [phone], [facility] 4 17:34:23 Anti-citrullin ated protein antibody detected 486976923 Active [address] [facility], [phone], [facility] 4 12:47:30 Problem Notes None recorded. Medical Equipment None Reported. Allergies No known drug allergies Medications Name Sig Start Date Stop Date Status Note LastModified by Organization Details LastModified Time citalopram 40 mg tablet TAKE 1 TABLET BY MOUTH ONCE DAILY active Not Available Not Available No t Available azithromyci n 250 mg tablet TAKE 2 TABLETS BY MOUTH ON DAY 1, AND THEN TAKE 1 TABLET BY MOUTH ONCE A DAY ON DAY 2 THROUGH DAY 5 10/08 completed Not Available Not Available Not Available fluconazole 150 mg tablet TAKE ONE TABLET BY MOUTH A ONE-TIME DOSE 10/08 completed Not Available Not Available Not Available prednisone 20 mg tablet TAKE 2 TABLETS BY MOUTH ONCE DAILY IN THE MORNING WITH BREAKFAST FOR 5 DAYS 10/08 completed Not Available Not Available Not Available alendronate 70 mg tablet Take 1 tablet every week by oral route. 10/09 completed Not Available Not Available Not Available lovastatin 40 mg tablet TAKE 1 TABLET BY MOUTH ONCE DAILY WITH EVENING MEAL active Not Available Not Available No t Available prednisone 5 mg tablet TAKE 4 TABLETS ONCE DAILY FOR 3 DAYS, THEN TAKE 3 TABLETS ONCE DAILY FOR 3 DAYS, THEN TAKE 2 TABLETS ONCE DAILY FOR 3 DAYS, THEN TAKE 1 TABLET DAILY FOR 3 DAYS. OFF 2023 active Not Available Not Available Not Avai lable potassium chloride ER 10 mEq tablet,exte nded release TAKE 1 TABLET BY MOUTH ONCE DAILY WITH FOOD active Not Available Not Available No t Available simvastatin 80 mg tablet Take 1 tablet every day by oral route. active Not Available Not Available No t Available nystatin-tr iamcinolone 100,000 unit/gram-0 .1 % topical ointment APPLY ONE APPLICATI ON TOPICALLY TWICE A DAY 10/09 completed Not Available Not Available Not Available alprazolam 0.25 mg tablet TAKE 1 TABLET BY MOUTH EVERY 6 HOURS NEEDED active Not Available Not Available No t Available citalopram 20 mg tablet TAKE 1 TABLET BY MOUTH ONCE DAILY 10/08 completed Not Available Not Available Not Available Multiple Vitamins tablet Take 1 tablet every day by oral route. active Not Available Not Available No t Available aspirin 81 mg chewable tablet Chew 1 tablet every day by oral route. active Not Available Not Available No t Available montelukast 10 mg tablet TAKE 1 TABLET BY MOUTH NIGHTLY AT BEDTIME active Not Available Not Available No t Available lisinopril 5 mg tablet TAKE 1/2 TABLET BY ORAL ROUTE ONCE DAILY active Not Available Not Available No t Available furosemide 20 mg tablet TAKE 1 TABLET BY MOUTH ONCE DAILY active Not Available Not Available No t Available metoprolol succinate ER 25 mg tablet,exte nded release 24 hr TAKE 1/2 (ONE-HALF ) TABLET BY MOUTH ONCE DAILY active Not Available Not Available No t Available hydroxychlo roquine 200 mg tablet TAKE 2 TABLETS BY MOUTH ONCE DAILY 10/09 completed Not Available Not Available Not Available levofloxaci n 500 mg tablet TAKE 1 TABLET BY MOUTH EVERY 24 HOURS 10/08 completed Not Available Not Available Not Available albuterol sulfate HFA 90 mcg/actuati on aerosol inhaler INHALE 2 PUFFS BY MOUTH EVERY 4 TO 6 HOURS active Not Available Not Available No t Available fluticasone propionate 50 mcg/actuati on nasal spray,suspe nsion USE 2 SPRAYS INTO EACH NOSTRIL TWICE DAILY FOR 1 WEEK, THEN USE 2 SPRAYS INTO EACH NOSTIL EVERY NIGHT active Not Available Not Available No t Available Co Q-10 200 mg capsule Take 1 capsule every day by oral route. 10/09 completed Not Available Not Available Not Available Reclast 5 mg/100 mL intravenous piggyback INFUSE 5 MG VIA IV YEARLY AT [facility] active Not Available Not Available No t Available Vitamin D3 50 mcg (2,000 unit) tablet Take 1 tablet every day by oral route. 10/09 completed Not Available Not Available Not Available magnesium 400 mg (as magnesium oxide) tablet Take 1 tablet every day by oral route. active Not Available Not Available No t Available Vitals Date Recorded Body height Body mass index (BMI) Body weight Heart rate Oxygen saturation Oxygen saturation in Arterial blood by Pulse oximetry Pain severity - 0-10 verbal numeric rating [Score] - Reported Systolic blood pressure Diastolic blood pressure Provider Name and Address Organization Details Last Updated DateTime 4 157.48 cm 25.4 kg/m2 65789.3 4 g 58 /min 95 % 95 % 4 130 mm[Hg] 80 mm[Hg] [facility] 4 16:46:32 Date Recorded Body height Body mass index (BMI) Body weight Heart rate Oxygen saturation Oxygen saturation in Arterial blood by Pulse oximetry Pain severity - 0-10 verbal numeric rating [Score] - Reported Systolic blood pressure Diastolic blood pressure Provider Name and Address Organization Details Last Updated DateTime 4 157.48 cm 25.6 kg/m2 90433.9 3 g 62 /min 97 % 97 % 4 132 mm[Hg] 82 mm[Hg] [facility] 4 12:06:03 Date Recorded Body height Body mass index (BMI) Body weight Heart rate Oxygen saturation Oxygen saturation in Arterial blood by Pulse oximetry Pain severity - 0-10 verbal numeric rating [Score] - Reported Systolic blood pressure Diastolic blood pressure Provider Name and Address Organization Details Last Updated DateTime 4 157.48 cm 25.7 kg/m2 40767.0 9 g 60 /min 95 % 95 % 2 120 mm[Hg] 76 mm[Hg] Kendra Villa [facility] 4 14:14:07 Social History None recorded. Functional Status None recorded. Mental Status None recorded. Family History Relationship Description Onset Age of this Age Resolved Age Notes LastModified by Organization Details LastModified Time Father Heart disease [email or web address] Not available 2023 13:58:05 Mother Heart disease [email or web address] Not available 2023 13:58:06 Mother Fibromyalgia [email or web address] Not avai lable 10/24/2023 12:06:35 Medical History No medical history recorded. Gynecological HistoryNo gynecological history recorded. Obstetrics History GPAL:G 0 P 0 0 0 0 Past Encounters Encounter ID Performer Location Encounter Start Date Encounter Closed Date Diagnosis/Indication Diagnosis SNOMED-CT Code Diagnosis ICD10 Code Diagnosis Note [id number] Jaciel Borges MD [facility] ([place]) [address] [place] [address] 10/10/2023 16:25:41 10/17/2023 08:41:14 Rheumatoid factor detected 908109340 R76.0 Osteoarthritis 508406714 M19.90 Fatigue 34998155 R53.83 Alopecia 39908651 L65.9 Chronic constipation 236 653748 K59.09 Chronic ki dney disease stage 3 406846604 N18.30 Long-term drug therapy 485414996 Z79.052 [id number] Jaciel Borges MD [facility] ([place]) [address] [place] [address] 10/24/2023 11:47:53 10/30/2023 12:01:34 Anti-citrullinated protein antibody detected 257712113 R76.0 Rheumatoid factor detected 747944879 R76.0 Osteoarthritis 649152860 M19.90 Long-term current use of steroid 560859501 Z79.52 [id number] Jaciel Borges MD [facility] ([place]) [address] [place] [address] 02/13/2024 14:06:47 02/15/2024 06:20:45 Anti-citrullinated protein antibody detected 842309448 R76.0 Rheumatoid factor detected 786478721 R76.0 Osteoarthritis 046179444 M19.90 Chronic ki dney disease stage 3 151358012 N18.30 Long-term current use of systemic steroid 4617041670 77643 Z79.52 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 Health Concerns Section Related Observation LastModified by Organization Detai ls LastModified Time None Recorded Concern Status LastModified by Organization Details LastModified Time None Recorded Advance Directives Directive None Recorded Payers Encounter Date Sequence Insurance Name Policy Number Policy Cardoza Covered Member ID Cardoza Member ID Guarantor Name 10/10/2023 1 [place] Denice Singh [id number] Chase [place] 10/10/2023 2 [place] [id number] Denice Singh [id number] Chase [place] 10/24/2023 1 [place] Den[place] [id number] [employer] [place] 10/24/2023 2 [place] [id number] Denice Singh [id number] Chase [place] 02/13/2024 1 [place] Den[place] [id number] Chase [place] 02/13/2024 2 [place] [id number] Denice Singh [id number] Chase Singh Notes Date Note Type Note Provider Name and Address Organization Details Recorded Time 10/10/2023 text/html The patient is a n 83-year-old postmenopausal white female with a history of rheumatoid arthritis, osteoarthritis and chronic kidney disease stage 3, who is here today for a followup visit.She reports she is not sure if she can really tell that the hydroxychloroquine is making much of a difference. She does have good days when she has very little pain and very little stiffness. No swelling. Then she has bad days when she flares with pain in her hands, wrists and shoulders. Currently she rates her pain a 3-4/10 on a scale. She has not noticed any true synovitis type symptoms. Her morning stiffness is lasting 15 minutes in duration. She reports some intermittent alopecia and issues with constipation. Her energy level is generally low, but she does push herself to stay active. 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 She enjoys getting up and going to work. The patient denies any falls or fractures since last visit. She has had no fever, chills, skin rash or aphthous ulcers, neck swelling, lymph node swelling, cough or pleurisy, chest pain or palpitations. She does report some constipation, but no nausea or vomiting. Appetite is entirely normal. No melena or hematochezia. She denies any dysuria or gross hematuria or bleeding from the nares or gums.tylor Borges MD [facility] [place] [address], [phone], [facility] 10/18/2023 09:57:46 10/24/2023 text/html The patient is a n 83-year-old female with a history of positive rheumatoid factor and CCP antibody, osteoarthritis, chronic kidney disease stage 3, and vitamin D deficiency, who is here today for a followup visit. The patient reports today continuing on her Tylenol, using up to 1 g orally 2-3 times daily for her chronic mechanical back pain. She has seen Dr. Evans in the past and has undergone previous injection procedures of the spine with variable amounts of relief. She currently reports that since being off her hydroxychloroquine, she has noticed some worsening stiffness and pain, especially throughout the hands and wrists, elbows, shoulders, knees, ankles and feet. She has good days and bad days, but more bad days than good days. Her morning stiffness will last up to 45 minutes to 2 hours in duration depending on the day. Weather does tend to exacerbate her joint symptoms. She does currently manage to perform her own ADLs without the use of an assistive device for ambulation. She rates her pain a 4-6/10 on a scale. She reports more achiness in the muscles than the joints. She has had fatigue, but admits her sleep is nonrestorative. She denies any fever or chills. No skin rash or Raynaud s symptoms. No cough or pleurisy, shortness of breath, chest pain or palpitations, GERD, melena or hematochezia, diarrhea or constipation, dysuria or gross hematuria or bleeding from the nares or gums. The patient is currently up once to twice at night to urinate. She finds it hard to get back to sleep. She does continue working. She is concerned today that she may have fibromyalgia syndrome as her mother had fibromyalgia.tylor Borges MD [address] [place] [address], [phone], [facility] 10/29/2023 14:28:51 02/13/2024 text/html An 83-year-old f emale with positive CCP antibody and moderately elevated rheumatoid factor, as well as fibromyalgia syndrome and osteoarthritis who is here for a follow-up visit today. She reports that the prednisone that she was given after her last visit did seem to help control her joint symptoms. She finished the taper and did well up until mid to late December when she had a couple of flares. She reports that she took Tylenol and eventually after one to two weeks the flares subsided. She currently reports having good days and bad days . She completes all of her own ADLs and does not require the use of an assistive device for ambulation. Her morning stiffness currently is lasting 10 to 20 minutes in duration. She rates her pain level a 2 out of 10 on the scale. On further review of systems, she has had no fever or chills. No skin rash. She does have a history of intermittent Raynaud s symptoms, but no digital ulcerations. She finds she does well as long as she keeps her extremities warm. She does see Dr. Tse of Pulmonology Medicine regarding her chronic asthma. She has had a previous chest x-ray and PFTs that show relatively normal lung function and no infiltrates. She denies any chest pain, palpitations, GERD, melena, hematochezia, diarrhea, constipation, anorexia, early satiety, dysuria, gross hematuria, or bleeding from the nares or gums.dre Borges MD [address] [place] [address], [phone], [facility] 02/16/2024 12:01:53 OBGyn Episode No OBEpisode recorded.
== END 2024-08-26 11:53 | disposition home or self-care (01) ==
PROVIDERS: PCP Internal Medicine; Visit Provider Internal Medicine
DX: Z12.31 Encounter for screening mammogram for malignant neoplasm of breast (principal)
CPT/HCPCS: 77063; 77067

== ENCOUNTER 2024-10-13 11:47 | Outpatient (CLI) | payer MEDICARE, SELFPAY ==
--- NOTE | 2024-10-13 11:55 | ECHO_ITS ---
Patient Info Name: Denice Singh Age: 84 years : 1940 Gender: Female Ht: 60 in Wt: 140 lbs BSA: 1.66 m2 HR: 55 bpm BP: 148 / 64 mmHg Technical Quality: Fair Exam Date: 10/13/2024 12:12 PM Patient Status: O Admit Date: 10/13/2024 Exam Type: CA echo doppler color flow Study Info Indications Cardiomegaly - Complete two-dimensional, color flow and Doppler transthoracic echocardiogram is performed. Staff Referring Physician: Jem Barragan Toolmaker Grade Three: Ally Bolden Attending Provider: Low Triana MD Summary 1. Complete two-dimensional, color flow and Doppler transthoracic echocardiogram is performed. 2. Left ventricular chamber dimension is normal. 3. Left ventricular systolic function is normal, estimated at 55-60. 4. The left ventricular diastolic function is grade I diastolic dysfunction. 5. E/e' 8 is minimally elevated. 6. Left atrial chamber dimension is moderately enlarged. 7. There is mild aortic valve sclerosis. 8. There is mild aortic valve regurgitation. 9. There is mild mitral valve regurgitation. 10. There is trace tricuspid valve regurgitation. 11. No pulmonary hypertension, estimated pulmonary arterial systolic pressure is 32 mmHg. 12. There is trace pulmonic regurgitation. Left Ventricle E/e' 8 is minimally elevated. Left ventricular chamber dimension is normal. Left ventricular systolic function is normal, estimated at 55-60. The left ventricular diastolic function is grade I diastolic dysfunction. Right Ventricle Right ventricular chamber dimension is normal. Right ventricular systolic function is normal. Left Atria Left atrial chamber dimension is moderately enlarged. Right Atria Right atrial chamber dimension is normal. Aortic Valve The aortic valve is trileaflet. There is mild aortic valve sclerosis. There is no aortic valve stenosis. There is mild aortic valve regurgitation. Pulmonic Valve There is trace pulmonic regurgitation. Mitral Valve There is no mitral valve stenosis. There is mild mitral valve regurgitation. Tricuspid Valve There is trace tricuspid valve regurgitation. No pulmonary hypertension, estimated pulmonary arterial systolic pressure is 32 mmHg. Pericardium/Pleural There is no pericardial effusion. Inferior Vena Cava Normal inferior vena cava with >50% collapse upon inspiration consistent with normal right atrial pressure, 5 mmHg. Aorta The aortic root size at the sinus of Valsalva is normal. Left Ventricular Outflow Tract Name Value Normal LVOT 2D LVOT Diameter 2.0 cm LVOT Doppler LVOT Peak Velocity 98 cm/s LVOT Peak Gradient 4 mmHg LVOT Mean Gradient 2 mmHg LVOT VTI 25 cm LVOT VTI/AV VTI Ratio 0.8 LVOT Stroke Volume 82 ml LVOT CO 4.4 l/min LVOT CI 2.7 l/min/m2 Pulmonic Valve Name Value Normal RVOT Doppler RVOT Peak Velocity 44 cm/s RVOT Peak Gradient 1 mmHg PV Doppler PV Peak Velocity 74 cm/s PV Peak Gradient 2 mmHg Mitral Valve Name Value Normal MV Diastolic Function MV E Peak Velocity 69 cm/s MV A Peak Velocity 82 cm/s MV E/A 0.8 MV Decel Time (PW) 233 ms MV Annular TDI MV E/e' (Septal) 10.5 MV E/e' (Lateral) 7.3 MV E/e' (Average) 8.9 Tricuspid Valve Name Value Normal TV Regurgitation Doppler TR Peak Velocity 261 cm/s TR Peak Gradient 27 mmHg Estimated PAP/RSVP RA Pressure 5 mmHg <=5 PA Systolic Pressure 32 mmHg <36 RV Systolic Pressure 32 mmHg <36 TV Annular TDI TV Lateral Lavinia s' Velocity 7.1 cm/s >=9.5 Aortic Valve Name Value Normal AV Doppler AV Peak Velocity 143 cm/s AV Peak Gradient 8 mmHg AV Mean Gradient 4 mmHg AV VTI 33 cm AV Area (Cont Eq VTI) 2.5 cm2 >=3.0 AV Area (Cont Eq Eduar) 2.2 cm2 AV DI (Eduar) 0.69 AV Regurgitation 2D LVOT Area 3.3 cm2 Ventricles Name Value Normal LV Dimensions 2D/MM IVS Diastolic Thickness (2D) 1.0 cm 0.6-1.0 LVID Diastole (2D) 4.6 cm 3.8-5.2 LVIW Diastolic Thickness (2D) 1.0 cm 0.6-0.9 LVID Systole (2D) 3.2 cm 2.2-3.5 LVOT Diameter 2.0 cm LV Mass (2D Cubed) 152.95 g 67.00-162.00 LV Mass Index (2D Cubed) 92 g/m2 43-95 Relative Wall Thickness (2D) 0.44 <=0.42 LV Fractional Shortening/Ejection Fraction 2D/MM LV Fractional Shortening (2D) 30 % 27-45 LV EF (2D Teichholz) 57 % LV Diastolic Volume (4C MOD) 94 ml LV EF (4C MOD) 66 % LV Diastolic Volume (2C MOD) 109 ml LV EF (2C MOD) 59 % LV Diastolic Volume (BP MOD) 103 ml 46-106 LV Diastolic Volume Index (BP MOD) 62 ml/m2 29-61 LV Systolic Volume (BP MOD) 39 ml 14-42 LV Systolic Volume Index (BP MOD) 23 ml/m2 8-24 LV EF (BP MOD) 62 % 54-74 LV Diastolic Length (4C) 7.3 cm LV Systolic Length (4C) 5.2 cm LV Stroke Volume (4C MOD) 62 ml Atria Name Value Normal LA Dimensions LA Volume (4C A-L) 78 ml LA Volume (BP A-L) 90 ml RA Dimensions RA Systolic Major Stewart Length (4C) 5.0 cm 2.2-2.8 RA Area (4C) 16.6 cm2 <=18.0 Report Signatures
--- OUTSIDE RECORDS SUMMARY | 2024-10-13 11:55 | XMS_ITS | Data Portability ---
Author Organization [facility], [address] [place] [address] Neurology ([place]) Address [address] [place] [address] Care Team Providers Care Mainframe Systems Engineer Name Role Phone VICENTE EVANS Primary Care Provider [phone] Assessment Encounter Date Assessment Date Assessment LastModified [...] in six months for a recheck. [email or web address] Not available 02/13/2024 19:29:03 Plan of Treatment Reminders Order Date Submit Date Provider Last Modified By Organization Details Last Modified Time Details Appointments Establish ed Patient 15.EST 2024 01:15P M Dr. Jaciel Borges Not available Not available Not available Lab cortisol, serum or plasma 2023 024 [email or web address] [employer] [facility], [facility] [place], [address], 10/24/2023 12:58:30 TSH, serum or plasma 2023 024 [employer] [facility], [facility] [place], [address], 10/21/2023 15:39:40 T4, free, serum 2023 024 [email or web address] [employer] [facility], [address] [place], [address], 10/21/2023 15:39:48 vitamin B12, serum 2023 024 [email or web address] [employer] [facility], [address] [place], [address], 10/24/2023 12:58:40 folate, serum 2023 024 [employer] [facility], [address] [facility], [address], 10/24/2023 12:58:52 Referral None recorded. Procedures None recorded. Surgeries None recorded. Imaging None recorded. Medication Orders prednison e 5 mg tablet 2023 024 [facility] [address] [place], [address], 10/25/2023 16:48:21 Patient TargetsNo targets recorded. Patient InstructionsNo instructions recorded. Reason for Referral None Reported. Results Created Date Observation Date Name Description Value Unit Range Abnormal Flag Note LastModifiedBy Organization Detail LastModifiedTime Result Notes None recorded. Problems Name Problem SNOMED Code Status Onset Date Resolution Date Notes Provider Name and Address Organization Details Recorded Time Vitamin D deficiency 47811068 [facility] 13[facility]56:05 Chronic kidney disease stage 3 047817927 Active 2023 [facility] 13:56:15 Osteoarthritis 071392065 Active 2023 [facility] 13:56:56 Rheumatoid arthritis 62611868 Active 2023 [facility] 13:57:11 Rheumatoid factor detected 162094882 Active 2023 Jaciel Borges MD [address] [place] [address], [address], [facility] 4 17:33:55 Fatigue 08675556 Active 2023 Jaciel Borges MD [facility] [place] [address], [address], [facility] 4 17:34:08 Alopecia 76270745 Active 2023 Jaciel Borges MD [facility] [place] [address], [address], [facility] 4 17:34:15 Chronic constipation 332396358 Active 2023 Jaciel Borges MD [address] [place] [address], [address], [facility] 4 17:34:23 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 Active 2023 Jaciel Borges MD [facility] [address], [address], [facility] 4 12:47:30 Problem Notes None [...] INFUSE 5 MG VIA IV YEARLY AT [facility] active Not Available Not Available No t [...] Updated DateTime 4 157.48 cm 25.4 kg/m2 97282.3 4 g 58 /min 95 % 95 % 4 130 mm[Hg] 80 mm[Hg] [facility] 4 16:46:32 Date Recorded Body height Body mass index (BMI) Body weight Heart rate Oxygen saturation Oxygen saturation in Arterial blood by Pulse oximetry Pain severity - 0-10 verbal numeric rating [Score] - Reported Systolic blood pressure Diastolic blood pressure Provider Name and Address Organization Details Last Updated DateTime 4 157.48 cm 25.6 kg/m2 74301.9 3 g 62 /min 97 % 97 % 4 132 mm[Hg] 82 mm[Hg] [facility] 4 12:06:03 Date Recorded Body height Body mass index (BMI) Body weight Heart rate Oxygen saturation Oxygen saturation in Arterial blood by Pulse oximetry Pain severity - 0-10 verbal numeric rating [Score] - Reported Systolic blood pressure Diastolic blood pressure Provider Name and Address Organization Details Last Updated DateTime 4 157.48 cm 25.7 kg/m2 23688.0 9 g 60 /min 95 % 95 % 2 120 mm[Hg] 76 mm[Hg] Kendra Villa [facility] 4 14:14:07 Social History None recorded. Functional Status None recorded. Mental Status None recorded. Family History Relationship Description Onset Age of this Age Resolved Age Notes LastModified by Organization Details LastModified Time Father Heart disease [email or web address] Not available 2023 13:58:05 Mother Heart disease [email or web address] Not available 2023 13:58:06 Mother Fibromyalgia [email or web address] Not avai lable 10/24/2023 12:06:35 Medical History No medical history recorded. Gynecological HistoryNo gynecological history recorded. Obstetrics History GPAL:G 0 P 0 0 0 0 Past Encounters Encounter ID Performer Location Encounter Start Date Encounter Closed Date Diagnosis/Indication Diagnosis SNOMED-CT Code Diagnosis ICD10 Code Diagnosis Note [id number] Jaciel Borges MD [facility] Rheumatol ogy (CT) [address] [address] 10/10/2023 16:25:41 10/17/2023 08:41:14 Rheumatoid factor detected 385051452 R76.0 Osteoarthritis 255880097 M19.90 Fatigue 80165531 R53.83 Alopecia 47171003 L65.9 Chronic constipation 236 282523 K59.09 Chronic ki dney disease stage 3 180507171 N18.30 Long-term drug therapy 518711682 Z79.250 [id number] Jaciel Borges MD [facility] Rheumatol ogy ([place]) [address] [place] [address] 10/24/2023 11:47:53 10/30/2023 12:01:34 Anti-citrullinated protein antibody detected 952036796 R76.0 Rheumatoid factor detected 188539155 R76.0 Osteoarthritis 180379634 M19.90 Long-term current use of steroid 783195487 Z79.52 [id number] Jaciel Borges MD [facility] Rheumatol ogy (CT) [address] [place] [address] 02/13/2024 14:06:47 02/15/2024 06:20:45 Anti-citrullinated protein antibody detected 576311308 R76.0 Rheumatoid factor detected 687325943 R76.0 Osteoarthritis 237514336 M19.90 Chronic ki dney disease stage 3 230679403 N18.30 Long-term current use of systemic steroid 8952819628 58392 Z79.52 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 Health Concerns Section Related Observation LastModified by Organization Detai ls LastModified Time None Recorded Concern Status LastModified by Organization Details LastModified Time None Recorded Advance Directives Directive None Recorded Payers Insurance Date Sequence Insurance Name Policy Number Policy Cardoza Covered Member ID Cardoza Member ID Guarantor Name 09/24/2024 1 [place] Denice Singh [id number] Chase Singh 08/11/2024 2 [place] [id number] Denice Singh [id number] Chase Singh 09/24/2024 1 [place] Denice Singh [id number] Chase Singh Notes Date Note Type Note [...] from the nares or gums.tylor Borges MD [address], [address], [facility] 10/18/2023 09:57:46 10/24/2023 text/html The [...] as her mother had fibromyalgia.tylor Borges MD [facility] [place] [address], [address], [facility] 10/29/2023 14:28:51 02/13/2024 text/html An [...] nares or gums.dre Borges MD [address] [place] [address], [address], [facility] 02/16/2024 12:01:53 OBGyn Episode No OBEpisode recorded.
--- OUTSIDE RECORDS SUMMARY | 2024-10-13 11:55 | XMS_ITS | Encounter Summary ---
Author Organization [facility] Address [facility] [place] [address] Care Team Providers Care Careers Adviser Name Role Phone Low Triana MD Primary Care Provider [phone] Niall Traylor MD Unavailable [phone] Funmilayo Quispe MD Unavailable Encounter Details Date Type Department Care Team (Late st Contact Info) Description 08/17/2017 Abstract [facility] CONVERSION [address] [place] [address] , Generic Conversion, Social History Tobacco Use Types Packs/Day Years Used Date Smoking Tobacco: Former Alcohol Use Standard Drinks/Week Comments No 0 (1 standard drink = 0.6 oz pur e alcohol) Comments Unknown Sex and Gender Information Value Date Recorded Sex Assigned at Female 07/25/2024 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 Legal Sex Female 6:06 PM CDT Gender Identity Female 11/04/2018 3:22 PM CDT Sexual Orientation Straight 11/04/2018 3: 22 PM CDT Occupation Industry Job Start Date Job End Date Retired Not on file Not on file Not on file documented as of this encounter Plan of Treatment Upcoming Encounters Date Type Department Care Team (Late st Contact Info) Description 12/07/2024 9:00 AM CDT Office Visit [facility] [address] Funmilayo Quispe MD [address] [place] [address] 12/24/2024 11:20 AM CDT Office Visit [facility] [place] [address] [place] Tse MD [address] [place] [address] documented as of this encounter Visit Diagnoses Not on filedocumented in this encounter Additional Health Concerns Infection Onset Date Last Indicated Resolved Time COVID-19 Rule Out 11/21/2019 11/21/2019 11/22/2019 9:19 PM CDT COVID-19 Rule Out 09/02/2021 09/02/2021 09/02/2021 12:09 PM CDT documented as of this encounter Care Teams Careers Adviser Relationship Specialty Start Date End Date Low Triana MD [address] [place] [address] PCP - General INTERNAL MEDICINE 02/02/16 Niall Traylor MD [address] [place] [address] [place] [employer] Operator CARDIOVASCULAR DISEASE 02/02/16 09/25/23 Funmilayo Quispe MD [address] [place] [address] Consulting Physician CARDIOVASCULAR DISEASE 09/26/23 documented as of this encounter
--- OUTSIDE RECORDS SUMMARY | 2024-10-13 11:55 | XMS_ITS | Encounter Summary ---
Author Organization [facility] Address [facility] [place] [address] Care Team Providers Care Linux Administrator Name Role Phone Low Triana MD Primary Care Provider [phone] Niall Traylor MD Unavailable [phone] Funmilayo Quispe MD Unavailable Encounter Details Date Type Department Care Team (Late st Contact Info) Description 11/08/2018 Abstract [facility] CONVERSION [address] [place] [id number] , Generic Conversion, Social History Tobacco Use Types Packs/Day Years Used Date Smoking Tobacco: Former Cigarettes Q uit: 1989 Smokeless Tobacco: Never Alcohol Use Standard Drinks/Week Comments No 0 (1 standard drink = 0.6 oz pur e alcohol) Comments No Sex and Gender Information Value Date Recorded Sex Assigned at Female 07/25/2024 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 Answer Date of Assessment Author Status No 11/07/2018 2:55 PM CDT Activ e * Do you have serious difficulty walking or climbing stairs? Answer Date of Assessment Author Status No 11/07/2018 2:55 PM CDT Haleigh Moreno RN Active * Do you have difficulty dressing or bathing? Answer Date of Assessment Author Status No 11/07/2018 2:55 PM CDT Haleigh Moreno RN Active * Because of a physical, mental, or emotional condition, do you have difficulty doing errands alone such as visiting a doctor's office or shopping? Answer Date of Assessment Author Status No 11/07/2018 2:55 PM CDT Haleigh Moreno RN Active documented as of this encounter Mental Status * Because of a physical, mental, or emotional condition, do you have serious difficulty concentrating, remembering, or making decisions? Answer Entry Date Author Status No 11/07/2018 2:55 PM CDT Haleigh Moreno RN Active documented in this encounter Plan of Treatment Upcoming Encounters Date Type Department Care Team (Late st Contact Info) Description 12/07/2024 9:00 AM CDT Office Visit [facility] [place] [address] Funmilayo Quispe MD [address] [place] [address] 12/24/2024 11:20 AM CDT Office Visit [facility] [place] [address] [place] [address] [place] Tse MD [address] [place] [address] documented as of this encounter Visit Diagnoses Not on filedocumented in this encounter Additional Health Concerns Infection Onset Date Last Indicated Resolved Time COVID-19 Rule Out 11/21/2019 11/21/2019 11/22/2019 9:19 PM CDT COVID-19 Rule Out 09/02/2021 09/02/2021 09/02/2021 12:09 PM CDT documented as of this encounter Care Teams Linux Administrator Relationship Specialty Start Date End Date Low Triana MD [address] [place] [phone] PCP - General INTERNAL MEDICINE 02/02/16 Niall Traylor MD [address] [place] [address] [place] Shift Coordinator CARDIOVASCULAR DISEASE 02/02/16 09/25/23 Funmilayo Quispe MD [address] [place] [address] Consulting Physician CARDIOVASCULAR DISEASE 09/26/23 documented as of this encounter
--- OUTSIDE RECORDS SUMMARY | 2024-10-13 11:55 | XMS_ITS | Encounter Summary ---
Author Organization [facility] Address [facility] [place] [address] Care Team Providers Care Taxonomy Teacher Name Role Phone Low Triana MD Primary Care Provider [phone] Niall Traylor MD Unavailable [phone] Funmilayo Quispe MD Unavailable Encounter Details Date Type Department Care Team (Late Contact Info) Description 12/03/2013 Abstract [facility] [address] [place] [address] Quyen Guo PA-C Social History Tobacco Use Types Packs/Day Years Used Date Smoking Tobacco: Former Alcohol Use Standard Drinks/Week Comments No 0 (1 standard drink = 0.6 oz pur e alcohol) Comments Unknown Sex and Gender Information Value Date Recorded Sex Assigned at Female 07/25/2024 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 Sex Female 6:06 PM CDT Gender Identity Female 11/04/2018 3:22 PM CDT Sexual Orientation Straight 11/04/2018 3: 22 PM CDT Occupation Industry Job Start Date Job End Date Retired Not on file Not on file Not on file documented as of this encounter Plan of Treatment Upcoming Encounters Date Type Department Care Team (Late Contact Info) Description 12/07/2024 9:00 AM CDT Office Visit [facility] [place] [address] Funmilayo Quispe MD [address] [place] [address] 12/24/2024 11:20 AM CDT Office Visit [facility] [place] [id number] [facility] [place] [address] [place] Tse MD [address] [place] [address] documented as of this encounter Visit Diagnoses Not on filedocumented in this encounter Additional Health Concerns Infection Onset Date Last Indicated Resolved Time COVID-19 Rule Out 11/21/2019 11/21/2019 11/22/2019 9:19 PM CDT COVID-19 Rule Out 09/02/2021 09/02/2021 09/02/2021 12:09 PM CDT documented as of this encounter Care Teams Taxonomy Teacher Relationship Specialty Start Date End Date Low Triana MD [address] [place] [phone] PCP - General INTERNAL MEDICINE 02/02/16 Niall Traylor MD [address] [place] [address] [place] Television Host CARDIOVASCULAR DISEASE 02/02/16 09/25/23 Funmilayo Quispe MD [address] [place] [address] Consulting Physician CARDIOVASCULAR DISEASE 09/26/23 documented as of this encounter
--- OUTSIDE RECORDS SUMMARY | 2024-10-13 11:56 | XMS_ITS | Clinical Summary ---
Author Organization [facility] Address [address] [place] [address] Care Team Providers Care Bunch Maker Name Role Phone Low Triana MD Primary Care Provider [phone] Funmilayo Quispe MD Unavailable Allergies No known active allergies Medications aspirin 81 MG tablet Take 1 tablet (81 mg total) by mouth daily. 4 Active lovastatin 40 MG tablet Take 40 mg by mouth daily 2 Active ALPRAZolam 0.25 MG tablet 0.5 tablets (0.125 mg total) nightly as needed. 2 8 Active metoprolol succinate 25 MG 24 hr tablet Take 0.5 tablets (12.5 mg total) by mouth daily. Active furosemide 20 MG tablet Take 1 tablet (20 mg total) by mouth daily. 2 Active potassium chloride CR 10 MEQ CR capsule Take 1 capsule (10 mEq total) by mouth daily. 2 Active nitroglycerin 0.[address] 1 tablet (0.4 mg total) under the tongue every 5 (five) minutes as needed for Chest Pain. 25 tablet 2 Active citalopram (CELEXA) 20 MG tablet Take 1 tablet (20 mg total) by mouth daily. 2 Active fluticasone propionate (FLONASE) 50 MCG/ACT nasal spray as needed. 2 Active Multiple Vitamin (MULTIVITAMIN ADULT OR) Take by mouth daily. Active albuterol sulfate HFA 108 (90 Base) MCG/ACT inhalerIndicatio ns:Shortness of breath INHALE 2 PUFFS BY MOUTH EVERY 4 HOURS NEEDED 8 g 3 Active montelukast (SINGULAIR) 10 MG tabletIndication s:Moderate persistent asthma without complication ([facility]) Take 1 tablet (10 mg total) by mouth nightly at bedtime. at bedtime 90 tablet 3 4 Active ipratropium-albu terol (DUONEB) 0.5-2.5 (3) MG/3ML SolutionIndicati ons:Chronic obstructive pulmonary disease, unspecified COPD type ([facility]) Take 3 mLs by nebulization every 6 (six) hours as needed. 90 mL 4 Active Active Problems Problem Noted Date Diagnosed Date Asthma-COPD overlap syndrome ([facility]) 0 02/05/2024 Moderate persistent asthma without complication ([facility]) 02/05/2024 Kyphoscoliosis 02/05/2024 Pulmonary fibrosis ([facility]) 01/26/2022 Chronic pulmonary aspiration 12/05/2021 Granulomatous disease, chronic ([facility]) 12/05/2021 Dependence on supplemental oxygen 12/05/2021 Shortness of breath 12/05/2021 Anxiety 03/28/2018 S/P CABG x 5 07/21/2015 S/P coronary artery stent placement 09/06/2005 Coronary artery disease Carotid disease, bilateral Essential (primary) hypertension Hyperlipidemia COPD (chronic obstructive pu lmonary disease) ([facility]) Resolved Problems Problem Noted Date Diagnosed Date Resolved Date Unstable angina ([facility]) 11/04/2018 11/11/2018 Encounters Date Type Department Care Team Description 09/18/2024 Telephone [facility] [address] [place] [address] Funmilayo Quispe MD Reschedule 07/25/2024 9:25 AM SUBSTATION OPERATOR CONVERSION - 07/25/2024 11:59 PM SUBSTATION OPERATOR CONVERSION Hospital [place] [id number] Low Triana MD Discharge Disposition: Home or Self Care (Routine Discharge) 07/25/[address] [place] [id number] Low Triana MD 07/25/2024 Travel from Last 3 Months Family History Medical History Relation Comments Heart Disease Father Cause of Heart Disease Maternal Aunt Heart Disease Maternal Uncle Heart Disease Mother Cause of Heart Disease Paternal Aunt COPD Paternal Uncle Heart Disease Paternal Uncle Cancer Sister Drug Abuse Son Relation Status Comments Daughter killed in accide nt Father (Age 64) Maternal Aunt Maternal Uncle Mother (Age 75) Paternal Aunt Paternal Uncle Sister Son Social History Tobacco Use Types Packs/Day Years Used Date Smoking Tobacco: Former Cigarettes Q uit: 1989 Smokeless Tobacco: Never Tobacco Cessation:Counseling Given: Not Answered Alcohol Use Standard Drinks/Week Comments No 0 (1 standard drink = 0.6 oz pur e alcohol) Comments No Sex and Gender Information Value Date Recorded Sex Assigned at Female 07/25/2024 9:23 AM SUBSTATION OPERATOR CONVERSION Legal Sex Female 6:06 PM CDT Gender Identity Female 11/04/2018 3:22 PM CDT Sexual Orientation Straight 11/04/2018 3: 22 PM CDT Occupation Industry Job Start Date Job End Date Retired Not on file Not on file Not on file Last Filed Vital Signs Vital Sign Reading Time Taken Comments Blood Pressure 117/60 01/23/2024 2:11 PM CDT Pulse 52 01/23/2024 2:11 PM CDT Temperature 36.2 C (97.2 F) 11/21/2022 12:15 PM CDT Respiratory Rate 16 01/23/2024 2:11 PM CDT Oxygen Saturation 94% 01/23/2024 2:11 PM CDT Inhaled Oxygen Concentration - - Weight 64 kg (141 lb) 01/23/2024 2:11 PM CDT Height 157.5 cm (5' 2 ) 01/23/2024 2:11 PM CDT Body Mass Index 25.79 01/23/2024 2:11 PM CDT Plan of Treatment Upcoming Encounters Date Type Department Care Team (Late st Contact Info) Description 12/07/2024 9:00 AM CDT Office Visit [facility] [place] [address] Funmilayo Quispe MD [address] [place] [address] 12/24/2024 11:20 AM CDT Office Visit [facility] [address] [place] [address] Pearl Tse MD [address] [place] [address] Health Maintenance Due Date Last Done Comments ASCVD Statin 1941 Annual Medicare Wellness Visit 2006 Dexa Scan (General) 2006 RSV Immunization or 60+ Years (1 - 1-dose 75+ series) 2016 DTaP, Tdap and Td Vaccines (2 - Td or Tdap) 09/09/2023 09/08/2013 COVID-19 Vaccine ( season) 2024 02/28/2022, 09/15/2021, 03/30/2021, Additional history exists PHQ-2 (Physician [employer] [place]) 06/03/2024 Pneumococcal Vaccine: 50+ Years Completed 07/08/2015, 05/18/2013, 09/16/2007 Zoster Vaccines Completed 09/16/2018, 07/03/2018 Meningococcal B Vaccine Aged Out No l onger eligible based on patient's age to complete this topic Meningococcal Vaccine Aged Out No tyson richard eligible based on patient's age to complete this topic RSV Immunizations Under 20 Months Aged Out No longer eligible based on patient's age to complete this topic Medical Devices Implanted Type Area Child And Adolescent Psychiatrist Device Identifier Shelf Expiration Date Model / Serial / Lot Cv Xience Anneliese Fred-Rca-11/07/19 19 Implanted:11/2018 by Mook Emerson MD (Quantity not on file) Stent Coronary RCA CHIN VASCULAR 04/27/2019 [id number] Cv Xience Anneliese Fred-Rca-11/07/19 19 Implanted:11/2018 by Mook Emerson MD (Quantity not on file) Stent Coronary RCA CHIN VASCULAR 07/20/2019 [id number] Cv Xience Anneliese Fred-Rca-11/07/19 19 Implanted:11/2018 by Mook Emerson MD (Quantity not on file) Stent Coronary RCA CHIN VASCULAR 07/20/2019 [id number] / / [id number] Cv Xience Anneliese Fred-Rca-11/07/19 19 Implanted:11/2018 by Mook Emerson MD (Quantity not on file) Stent Coronary RCA CHIN VASCULAR 02/24/2019 [id number] / / [id number] Tecnis Lens Implanted:Qty: 1 on 10/17/2022 by Nancy Marie MD at [facility] Right: Eye [id number] 07/03/2025 [id number] / [id number] / Tecnis Lens Implanted:Qty: 1 on 11/21/2022 by Nancy Marie MD at [facility] Left: Eye 06/24/2025 DCB00 / / [id number] Procedures Procedure Name Priority Date/Time Associated Diagnosis Comments C-REACTIVE PROTEIN Routine 07/25/2024 10 :08 AM SUBSTATION OPERATOR CONVERSION Urinary tract infection, site not specified Mixed hyperlipidemia Essential hypertension, malignant Chronic kidney disease, stage II (mild) CBC W/DIFF AUTOMATED Routine 07/25/2024 10:08 AM SUBSTATION OPERATOR CONVERSION Urinary tract infection, site not specified Mixed hyperlipidemia Essential hypertension, malignant Chronic kidney disease, stage II (mild) FERRITIN Routine 07/25/2024 10:08 AM SUBSTATION OPERATOR CONVERSION Urinary tract infection, site not specified Mixed hyperlipidemia Essential hypertension, malignant Chronic kidney disease, stage II (mild) IRON SAT PANEL (IRON,IBC,%SAT) Routine 07/25/2024 10:08 AM SUBSTATION OPERATOR CONVERSION Urinary tract infection, site not specified Mixed hyperlipidemia Essential hypertension, malignant Chronic kidney disease, stage II (mild) PRO-BRAIN NATRIURETIC PEPTIDE Routine 07/25/2024 10:08 AM SUBSTATION OPERATOR CONVERSION Urinary tract infection, site not specified Mixed hyperlipidemia Essential hypertension, malignant Chronic kidney disease, stage II (mild) Pleural effusion due to congestive heart failure (CMS/HCC HHS/HCC) CK (CPK) Routine 07/25/2024 10:08 AM SUBSTATION OPERATOR CONVERSION Urinary tract infection, site not specified Mixed hyperlipidemia Essential hypertension, malignant Chronic kidney disease, stage II (mild) LIPID PANEL Routine 07/25/2024 10:08 AM SUBSTATION OPERATOR CONVERSION Urinary tract infection, site not specified Mixed hyperlipidemia Essential hypertension, malignant Chronic kidney disease, stage II (mild) COMPREHENSIVE METABOLIC PANEL Routine 07/25/2024 10:08 AM SUBSTATION OPERATOR CONVERSION Urinary tract infection, site not specified Mixed hyperlipidemia Essential hypertension, malignant Chronic kidney disease, stage II (mild) HC URINALYSIS AUTO W/MICRO Routine 07/25/2024 9:59 AM SUBSTATION OPERATOR CONVERSION Urinary tract infection, site not specified Mixed hyperlipidemia Essential hypertension, malignant Chronic kidney disease, stage II (mild) from Last 3 Months Results * (ABNORMAL) PRO-BRAIN NATRIURETIC PEPTIDE (07/25/2024 10:08 AM SUBSTATION OPERATOR CONVERSION) PRO-B TYPE NATRIURETIC PEPTIDE 798(H) <450 PG/ML 07/25/2024 11:15 AM SUBSTATION OPERATOR CONVERSION [facility] Comment: CUT POINTS ESTABLISHED BY INTERNATIONAL COLLABORATIVE ON NT PROBNP (ICON) STUDY (2006). AGE INDEPENDENT: <300 PG/ML HAS A 99% NEGATIVE PREDICTIVE VALUE FOR EXCLUDING ACUTE CHF <50 YEARS: >450 PG/ML IS CONSISTENT WITH ACUTE CHF 50-75 YEARS: >900 PG/ML IS CONSISTENT WITH ACUTE CHF >75 YEARS: >1800 PG/ML IS CONSISTENT WITH ACUTE CHF IN PATIENTS WITH RENAL INSUFFICIENCY (GFR <60), >1200 PG/ML YIELDS A DIAGNOSTIC SENSITIVITY AND SPECIFICITY OF 89% AND 72% FOR ACUTE CHF. 07/25/2024 10:0 8 AM SUBSTATION OPERATOR CONVERSION us Low Triana MD LABORATORY Final Result [facility] [place] [address], * IRON SATURATION PNL (FE/TIBC/SAT) (07/25/2024 10:08 AM SUBSTATION OPERATOR CONVERSION) IRON 83 50 - 170 MCG/DL 07/25/2024 11:25 AM [facility] IRON BINDING CAPACITY 290 250 - 450 MCG/DL 07/25/2024 11:25 AM [facility] IRON SATURATION 29 % 11:25 AM [facility] Comment:REFERENCE RANGE NOT ESTABLISHED 07/25/2024 10:0 8 AM SUBSTATION OPERATOR CONVERSION us Low Triana MD LABORATORY Final Result [facility] [address] [place] [address], * (ABNORMAL) COMPREHENSIVE METABOLIC PANEL (07/25/2024 10:08 AM [facility]) SODIUM S/P/B 141 136 - 145 MMOL/L 07/25/2024 11:15 AM [facility] POTASSIUM S/P/B 4.9 3.5 - 5.1 MMOL/L 07/25/2024 11:15 AM [facility] CHLORIDE S/P/B 103 98 - 107 MMOL/L 07/25/2024 11:15 AM [facility] CO2 30.9 21.0 - 32.0 MMOL/L 07/25/2024 11:15 AM [facility] GLUCOSE 88 70 - 99 MG/DL 07/25/2024 11:15 AM [facility] Comment: FASTING GLUCOSE 100 TO 125 MG/DL IS CONSISTENT WITH IMPAIRED FASTING GLUCOSE. FASTING GLUCOSE >125 MG/DL IS CONSISTENT WITH DIABETES. RANDOM GLUCOSE >200 MG/DL WITH HYPERGLYCEMIC SYMPTOMS IS CONSISTENT WITH DIABETES. PER ADA GUIDELINES BUN 38(H) 6 - 24 MG/DL 07/25/2024 11:15 AM [facility] CREATININE S/P/B 1.43(H) 0.55 - 1.02 MG/DL 07/25/2024 11:15 AM [facility] CALCIUM S/P/B 9.4 8.4 - 10.5 MG/DL 07/25/2024 11:15 AM [facility] BILIRUBIN TOTAL S/P/B 0.6 0.2 - 1.0 MG/DL 07/25/2024 11:15 AM [facility] Comment: THIS ASSAY IS NOT RECOMMENDED FOR PATIENTS UNDERGOING TREATMENT WITH ELTROMBOPAG DUE TO THE POTENTIAL FOR FALSELY ELEVATED RESULTS. ALKALINE PHOSPHATASE S/P/B 100 55 - 142 U/L 07/25/2024 11:15 AM [facility] AST 21 15 - 37 U/L 07/25/2024 11:15 AM [facility] ALT 23 14 - 59 U/L 07/25/2024 11:15 AM [facility] TOTAL PROTEIN S/P/B 7.0 6.4 - 8.2 G/DL 07/25/2024 11:15 AM [facility] ALBUMIN S/P/B 3.8 3.4 - 5.0 G/DL 07/25/2024 11:15 AM [facility] ANION GAP 7.1 5.0 - 15.0 MMOL/L 07/25/2024 11:15 AM [facility] OSMOLALITY (CALC) 300 MOSM/KG 025 11:15 AM [facility] Comment:REFERENCE RANGE NOT ESTABLISHED GFR ESTIMATE 37(L) >89 ML/MIN/1. 73 M2 07/25/2024 11:15 AM [facility] GFR NOTES GFR REFERENCE S: 07/25/2024 11:15 AM [facility] Comment: THE ESTIMATED GFR IS CALCULATED USING THE 2020 CKD-EPI EQUATION. THE FOLLOWING CATEGORIES FOR GRADING RENAL FUNCTION ARE RECOMMENDED BY THE INTERNATIONAL SOCIETY OF NEPHROLOGY (KDIGO 2012 CLINICAL PRACTICE GUIDELINE). G1,NORMAL OR HIGH: >89 ml/min/1.73 m2 G2,MILDLY DECREASED: 60-89 ml/min/1.73 m2 G3A,MILDLY TO MODERATELY DECREASED: 45-59 ml/min/1.73 m2 G3B,MODERATELY TO SEVERELY DECREASED: 30-44 ml/min/1.73 m2 G4,SEVERELY DECREASED: 15-29 ml/min/1.73 m2 G5,KIDNEY FAILURE: <15 ml/min/1.73 m2 07/25/2024 10:0 8 AM SUBSTATION OPERATOR CONVERSION oLw Triana MD LABORATORY Final Result [facility] [address] [place] [address], * LIPID PANEL (07/25/2024 10:08 AM SUBSTATION OPERATOR CONVERSION) CHOLESTEROL 190 MG/DL 07/25/2024 7:39 PM SUBSTATION OPERATOR CONVERSION [facility] Comment:DESIRABLE: <200 TRIGLYCERIDES 152 MG/DL 07/25/2024 7:39 PM SUBSTATION OPERATOR CONVERSION [facility] Comment:150-199 BORDERLINE H IGH HDL 51 >49 MG/DL 07/25/2024 7:39 PM SUBSTATION OPERATOR CONVERSION [facility] LDL-C 109 MG/DL 07/25/2024 7:39 PM SUBSTATION OPERATOR CONVERSION [facility] Comment:100-129 NEAR OR ABOV E OPTIMAL VLDL CALCULATION 30 MG/DL 07/25/19 7:39 PM SUBSTATION OPERATOR CONVERSION [facility] Comment:REFERENCE RANGE NOT ESTABLISHED CHOL/HDL RATIO 3.7 07/25/2024 7:39 PM SUBSTATION OPERATOR CONVERSION [facility] Comment:REFERENCE RANGE NOT ESTABLISHED LDL/HDL 2.1 07/25/2024 7:39 PM SUBSTATION OPERATOR CONVERSION [facility] Comment:REFERENCE RANGE NOT ESTABLISHED NON HDL CHOLESTEROL 139 MG/DL 07/25/2024 7:39 PM SUBSTATION OPERATOR CONVERSION [facility] Comment:REFERENCE RANGE NOT ESTABLISHED 07/25/2024 10:0 8 AM SUBSTATION OPERATOR CONVERSION us Low Triana MD LABORATORY Final Result [facility] [address] [place] [address], [id number] * C-REACTIVE PROTEIN (07/25/2024 10:08 AM SUBSTATION OPERATOR CONVERSION) C-REACTIVE PROTEIN 0.25 <0.30 mg/dL 07/25/2024 11:15 AM [facility] 07/25/2024 10:0 8 AM SUBSTATION OPERATOR CONVERSION us Low Triana MD LABORATORY Final Result [facility] [address] [place] [address], * (ABNORMAL) CBC W/DIFF AUTOMATED (07/25/2024 10:08 AM SUBSTATION OPERATOR CONVERSION) WBC 5.07 4.00 - 10.80 x10'3/uL 07/25/2024 10:19 AM [facility] RBC 3.91(L) 4.10 - 5.40 x10'6/uL 07/25/2024 10:19 AM [facility] HGB 12.1 12.0 - 16.0 G/DL 07/25/2024 10:19 AM [facility] HCT 36.4 36.0 - 47.0 % 07/25/2024 10:19 AM [facility] MCV 93.1 78.0 - 100.0 FL 07/25/2024 10:19 AM [facility] MCH 30.9 27.0 - 31.0 PG 07/25/2024 10:19 AM [facility] MCHC 33.2 33.0 - 36.0 G/DL 07/25/2024 10:19 AM [facility] RDW 12.3 11.5 - 14.5 % 07/25/2024 10:19 AM [facility] PLT 159 150 - 350 x10'3/uL 07/25/2024 10:19 AM [facility] MPV 10.6(H) 7.4 - 10.4 FL 07/25/2024 10:19 AM [facility] CBC COMMENT NORMAL REFERENCE RANGE NOT ESTABLISHED FOR THE PROPORTIONAL LEUKOCYTE DIFFERENTIAL. 07/25/2024 10:19 AM [facility] NEUTROPHILS % 65.4 % 07/25/2024 10:19 AM [facility] LYMPHOCYTES % 22.7 % 07/25/2024 10:19 AM [facility] MONOCYTES % 7.7 % 07/25/2024 10:19 AM [facility] EOSINOPHILS % 3.6 % 07/25/2024 10:19 AM [facility] BASOPHILS % 0.4 % 07/25/2024 10:19 AM [facility] IMMATURE GRANS % 0.2 % 07/25/19 10:19 AM SUBSTATION OPERATOR CONVERSION [facility] NRBC % 0.0 % 07/25/2024 10:19 AM [facility] ABS. NEUTROPHILS 3.32 1.60 - 8.30 x10'3/uL 07/25/2024 10:19 AM [facility] ABS. LYMPHOCYTES 1.15 0.80 - 4.70 x10'3/uL 07/25/2024 10:19 AM [facility] ABS. MONOCYTES 0.39 0.00 - 1.50 x10'3/uL 07/25/2024 10:19 AM [facility] ABS. EOSINOPHILS 0.18 0.00 - 0.40 x10'3/uL 07/25/2024 10:19 AM [facility] ABS. BASOPHILS 0.02 0.00 - 0.20 x10'3/uL 07/25/2024 10:19 AM [facility] ABS. IMMATURE GRANULOCYTES 0.01 0.00 - 0.03 x10'3/uL 07/25/2024 10:19 AM [facility] ABS. NUCLEATED RBC'S 0.00 0.00 - 0.01 x10'3/uL 07/25/2024 10:19 AM [facility] 07/25/2024 10:0 8 AM SUBSTATION OPERATOR CONVERSION us Low Triana MD LABORATORY Final Result [facility] [address] [place] [address], * FERRITIN (07/25/2024 10:08 AM SUBSTATION OPERATOR CONVERSION) FERRITIN 176.9 8 - 252 NG/ML 07/25/2024 11:44 AM SUBSTATION OPERATOR CONVERSION [facility] 07/25/2024 10:0 8 AM SUBSTATION OPERATOR CONVERSION us Low Triana MD LABORATORY Final Result Performing Organization Address City/[facility]/ZIP Co de Phone Number [facility] [address] [place] [address], * CK (CPK) (07/25/2024 10:08 AM SUBSTATION OPERATOR CONVERSION) CPK 135 26 - 192 U/L 07/25/2024 11:15 AM SUBSTATION OPERATOR CONVERSION [facility] 07/25/2024 10:0 8 AM SUBSTATION OPERATOR CONVERSION us Low Triana MD LABORATORY Final Result Performing Organization Address [facility]/ZIP Co de Phone Number [facility] [address] [place] [address], * (ABNORMAL) URINALYSIS (07/25/2024 9:59 AM SUBSTATION OPERATOR CONVERSION) COLOR (U) YELLOW 07/25/2024 10:56 AM SUBSTATION OPERATOR CONVERSION [facility] TRANSPARENCY CLEAR 07/25/2024 10:56 AM SUBSTATION OPERATOR CONVERSION [facility] SPECIFIC GRAVITY (U) 1.020 1.000 - 1.025 07/25/2024 10:56 AM SUBSTATION OPERATOR CONVERSION [facility] U PH 6.5 5.0 - 8.0 07/25/2024 10:56 AM [facility] LEUKOCYTES (U) NEGATIVE NEGATIVE 07/25/2024 10:56 AM SUBSTATION OPERATOR CONVERSION [facility] NITRITES NEGATIVE NEGATIVE 07/25/2024 10:56 AM SUBSTATION OPERATOR CONVERSION [facility] PROTEIN RANDOM (U) TRACE(A) NEGATIVE 07/25/2024 10:56 AM SUBSTATION OPERATOR CONVERSION [facility] GLUCOSE (U) NEGATIVE NEGATIVE 07/25/2024 10:56 AM SUBSTATION OPERATOR CONVERSION [facility] KETONES MG/DL (U) NEGATIVE NEGATIVE 07/25/2024 10:56 AM SUBSTATION OPERATOR CONVERSION [facility] UROBILINOGEN 0.2 <1.0 EU/DL 07/25/2024 10:56 AM SUBSTATION OPERATOR CONVERSION [facility] BILIRUBIN (U) NEGATIVE NEGATIVE 07/25/2024 10:56 AM SUBSTATION OPERATOR CONVERSION [facility] BLOOD (U) 2+(A) NEGATIVE 07/25/2024 10:56 AM SUBSTATION OPERATOR CONVERSION [facility] WBC/HPF 5-10(A) 0 - 5 /HPF 07/25/2024 10:56 AM SUBSTATION OPERATOR CONVERSION [facility] RBC/HPF 0-5 0 - 5 /HPF 07/25/2024 10:56 AM SUBSTATION OPERATOR CONVERSION [facility] EPI/LPF 20-50 /LPF 07/25/2024 10:56 AM SUBSTATION OPERATOR CONVERSION [facility] BACTERIA (U) TRACE /HPF 07/25/2024 10:56 AM SUBSTATION OPERATOR CONVERSION [facility] URINE SPECIMEN OBTAINED BY CLEAN CATCH PROCEDURE / Unknown 07/25/2024 9:59 AM SUBSTATION OPERATOR CONVERSION us Low Triana MD URINE ORDERABLES Final Result Performing Organization Address [facility]/State/[facility] Co de Phone Number [facility] [address] [place] [address], from Last 3 Months Insurance MEDICARE Advance Directives * Full Code (Latest Code Status on File) Date Activated Date Inactivated Comments 11/21/2022 11:58 AM 11/21/2022 2:25 PM * Full Code Date Activated Date Inactivated Comments 11/06/2018 10:57 AM 11/07/2018 5:09 PM * Full Code Date Activated Date Inactivated Comments 11/05/2018 11:04 AM 11/06/2018 10:57 AM * Full Code Date Activated Date Inactivated Comments 11/04/2018 3:50 PM 11/05/2018 11:03 AM Care Teams Bunch Maker Relationship Specialty Start Date End Date Low Triana MD [address] [place] [id number] PCP - General INTERNAL MEDICINE 02/02/16 Funmilayo Quispe MD [address] [place] [address] Consulting Physician CARDIOVASCULAR DISEASE 09/26/23
== END 2024-10-13 11:48 | disposition home or self-care (01) ==
LOC: CHSIMG 11:52
PROVIDERS: PCP Internal Medicine; Visit Provider Internal Medicine
DX: I50.9 Heart failure, unspecified (principal); I08.0 Rheumatic disorders of both mitral and aortic valves
CPT/HCPCS: 93306

== ENCOUNTER 2024-11-11 14:57 | Outpatient (CLI) | payer MEDICARE, SELFPAY ==
--- NOTE | ~2024-11-11 | US_ITS ---
RIGHT LOWER EXTREMITY VENOUS ULTRASOUND Ordering provider: Low Triana MD History: . R CALF SWELLING . Comparison: None. FINDINGS: --COMMON FEMORAL: Patent and free of thrombus. Normal compressibility, phasic flow and augmentation. --PROXIMAL SUPERFICIAL FEMORAL: Patent and free of thrombus. Normal compressibility, phasic flow and augmentation. --DISTAL SUPERFICIAL FEMORAL: Patent and free of thrombus. Normal compressibility, phasic flow and au gmentation. --POPLITEAL: Patent and free of thrombus. Normal compressibility, phasic flow and augmentation. Reflu x is noted with reflux x2.9 seconds. --POSTERIOR TIBIAL: Patent and free of thrombus. Normal compressibility, phasic flow and augmentation . IMPRESSION: Negative right lower extremity venous US. No deep vein thrombosis. Reviewed, dictated and finalized at location A.
[2024-11-11 15:33] LABS: Basophils Absolute Auto 0.04 K/mm3 (0.00-0.10); Basophils Percent Auto 0.6 % (0.0-1.0); Eosinophils Absolute Auto 0.26 K/mm3 (0.02-0.50); Eosinophils Percent Auto 3.9 % (1.0-6.0); Hemoglobin 11.9 g/dL (11.7-13.8); Immature Granulocyte Absolute 0.02 K/mm3 (0.00-0.00); Immature Granulocyte Percent A 0.3 % (0.0-0.0); Lymphocytes Absolute Auto 1.39 K/mm3 (1.10-4.50); Lymphocytes Percent Auto 21.1 % (18.0-42.0); Mean Corpuscular HGB Conc 33.1 g/dL (32-36); Mean Corpuscular Hemoglobin 30.7 pg (27.0-31.0); Mean Platelet Volume 10.3 fl (9.2-11.8); Monocytes Absolute Auto 0.54 K/mm3 (0.10-0.90); Monocytes Percent Auto 8.2 % (2.0-11.0); Neutrophils Absolute Auto 4.34 K/mm3 (1.70-7.20); Neutrophils Percent Auto 65.9 % (50.0-70.0); Platelet Count Result 171 K/mm3 (150-420); Red Blood Count 3.87 M/mm3 (4.20-5.40); Red Cell Distribution Width 12.7 % (11.6-14.4); White Blood Count 6.6 K/mm3 (4.8-10.8)
[2024-11-11 15:54] LABS: D Dimer 1.06 mg/L (0.19-0.50)
[2024-11-11 16:39] LABS: Alanine Aminotransferase 24 U/L (6-35); Albumin Level 4.4 g/dL (3.5-5.1); Alkaline Phosphatase 113 U/L (38-126); Anion Gap 4 mmol/L (4-12); Aspartate Amino Transferase 37 U/L (14-36); Bilirubin,Total 0.6 mg/dL (0.2-1.3); Blood Urea Nitrogen 29 mg/dL (7-17); Carbon Dioxide 32 mmol/L (22-30); Chloride 102 mmol/L (98-107); Estimated Glomerular Filt Rate 34; Glucose 85 mg/dL (65-110); Osmolality Calculated 290 mOsm/kg (285-295); Potassium 4.5 mmol/L (3.4-5.0); Sodium 138 mmol/L (137-145); Total Protein 6.7 g/dL (6.3-8.2)
[2024-11-11 16:48] LABS: NT Pro B Type Natriuretic Pept 1210 pg/mL (19.9-100)
[2024-11-11 16:56] LABS: Free T4 Free Thyroxine 1.16 ng/dL (0.78-2.19)
[2024-11-11 17:02] LABS: Free T3 3.43 pg/mL (2.18-3.98)
[2024-11-11 17:09] LABS: Thyroid Stimulating Hormone 0.985 uIU/mL (0.465-4.680)
== END 2024-11-11 14:58 | disposition home or self-care (01) ==
PROVIDERS: PCP Internal Medicine; Visit Provider Internal Medicine
DX: M79.89 Other specified soft tissue disorders (principal); I50.9 Heart failure, unspecified; N18.30 Chronic kidney disease, stage 3 unspecified
CPT/HCPCS: 36415; 80053; 83880; 84439; 84443; 84481; 85025; 85380; 93971

== ENCOUNTER 2025-03-23 10:35 | Outpatient (CLI) | payer MEDICARE, SELFPAY ==
[2025-03-23 10:49] VITALS: BP 143/88; PULSE 80; RESP 16; TEMP 36.6; O2SAT 97; BMI 22.4
[2025-03-23] MEDS: ZOLEDRONIC ACID 5 MG/100 ML 100 ML 400 MG IVPB (11:10)
[2025-03-23 11:41] VITALS: BP 129/81; PULSE 78; RESP 14
--- NOTE | 2025-03-23 11:42 | PC.NURSE ---
Patient tolerated yearly Reclast infusion well. SEE MAR/patient care notes.
== END 2025-03-23 10:36 | disposition home or self-care (01) ==
PROVIDERS: PCP Internal Medicine; Visit Provider Internal Medicine
DX: M81.0 Age-related osteoporosis without current pathological fracture (principal)
CPT/HCPCS: 96374; J3489

== ENCOUNTER 2025-04-02 10:30 | Outpatient (CLI) | payer MEDICARE, SELFPAY ==
--- NOTE | ~2025-04-02 | XR_ITS ---
EXAMINATION: XR chest 2V, 04/02/2025 10:45 CDT HISTORY: SHORTNESS OF BREATH COMPARISON: No comparisons available. Technique: 2 views obtained. Findings: The lungs are clear, no effusion. No pneumothorax. Heart is normal size. Mediastinal and hilar contours are within normal limits. Post sternotomy. Impression: No acute cardiopulmonary abnormality. Reviewed, dictated and finalized at location P. Impression: No acute cardiopulmonary abnormality.
[2025-04-02 10:42] LABS: Hematocrit 34.6 % (35.0-42.0); Hemoglobin 11.5 g/dL (11.7-13.8); Mean Corpuscular HGB Conc 33.2 g/dL (32-36); Mean Corpuscular Hemoglobin 31.2 pg (27.0-31.0); Mean Corpuscular Volume 93.8 fL (78.0-102.0); Platelet Count Result 189 K/mm3 (150-420); Red Blood Count 3.69 M/mm3 (4.20-5.40); White Blood Count 4.9 K/mm3 (4.8-10.8)
[2025-04-02 10:58] LABS: Alanine Aminotransferase 22 U/L (6-35); Albumin Level 4.6 g/dL (3.5-5.1); Alkaline Phosphatase 88 U/L (38-126); Anion Gap 11 mmol/L (4-12); Aspartate Amino Transferase 36 U/L (14-36); Bilirubin,Total 0.6 mg/dL (0.2-1.3); Blood Urea Nitrogen 45 mg/dL (7-17); Calcium 10.1 mg/dL (8.4-10.2); Carbon Dioxide 30 mmol/L (22-30); Chloride 104 mmol/L (98-107); Creatine Kinase 95 U/L (30-135); Estimated Glomerular Filt Rate 22; Glucose 98 mg/dL (65-110); Osmolality Calculated 311 mOsm/kg (285-295); Potassium 4.6 mmol/L (3.4-5.0); Sodium 145 mmol/L (137-145); Total Protein 7.3 g/dL (6.3-8.2)
[2025-04-02 11:10] LABS: NT Pro B Type Natriuretic Pept 1010 pg/mL (19.9-100); Troponin I < 0.012 ng/mL (0.000-0.034)
== END 2025-04-02 10:31 | disposition home or self-care (01) ==
LOC: CHSLAB 10:31
PROVIDERS: PCP Internal Medicine; Visit Provider Internal Medicine
DX: R06.02 Shortness of breath (principal)
CPT/HCPCS: 36415; 71046; 80053; 82550; 82553; 83880; 84484; 85027; 85380

== ENCOUNTER 2025-04-05 11:13 | Outpatient (CLI) | payer MEDICARE, SELFPAY ==
--- NOTE | ~2025-04-05 | NM_ITS ---
EXAMINATION: NM lung vent and perfusion DATE: 04/05/2025 12:14 INDICATION: Shortness of breath. Positive d-dimer. Elevated creatinine. TECHNIQUE: 35.2 mCi Tc-99m DTPA aerosol by inhalation and 5.1 mCi Tc-99m MAA by intravenous route. Scintigraphic images of the chest were obtained. COMPARISON: FINDINGS: There is relatively homogeneous radiotracer activity throughout the lungs on the single breath ventilation images. There is relatively homogeneous perfusion throughout the lungs. No discrete ventilation and perfusion mismatch is identified. IMPRESSION: 1. Low probability for pulmonary embolism. Reviewed, dictated and finalized at location A. TICAL NURSING INSTRUCTOR
== END 2025-04-05 11:14 | disposition home or self-care (01) ==
LOC: CHSIMG 11:18
PROVIDERS: PCP Internal Medicine; Visit Provider Internal Medicine
DX: R79.1 Abnormal coagulation profile (principal); R06.02 Shortness of breath; R79.89 Other specified abnormal findings of blood chemistry
CPT/HCPCS: 78582; A9567; A9540